=== PATIENT | female | born 1950 | race Caucasian/White ===

== ENCOUNTER 2019-02-23 14:59 | Outpatient (RCR) | payer MEDICARE, MEDICAID, SELFPAY ==
[2019-02-23 15:36] LABS: INR 2.08 (0.8-1.2)
== END 2019-03-13 23:59 | disposition home or self-care (01) ==
LOC: LAB 14:59
PROVIDERS: Family Provider Family Medicine; PCP Family Medicine; Visit Provider Nurse Practitioner Family
DX: C54.1 Malignant neoplasm of endometrium (principal); E66.01 Morbid (severe) obesity due to excess calories; Z79.01 Long term (current) use of anticoagulants; Z86.718 Personal history of other venous thrombosis and embolism
CPT/HCPCS: 85610

== ENCOUNTER 2019-04-11 06:00 | Outpatient (CLI) | payer MEDICARE, MEDICAID, SELFPAY | END 2019-04-11 06:01 | disposition home or self-care (01) | LOC: ONCMED 04-21 13:54 | PROVIDERS: Family Provider Family Medicine; PCP Family Medicine; Visit Provider Internal Medicine Medical Oncology | DX: C56.9 Malignant neoplasm of unspecified ovary (principal); C78.6 Secondary malignant neoplasm of retroperitoneum and peritoneum; I89.0 Lymphedema, not elsewhere classified; I87.8 Other specified disorders of veins; M81.0 Age-related osteoporosis without current pathological fracture; G89.29 Other chronic pain; E03.9 Hypothyroidism, unspecified; M54.9 Dorsalgia, unspecified; Z79.899 Other long term (current) drug therapy; Z90.722 Acquired absence of ovaries, bilateral; Z90.710 Acquired absence of both cervix and uterus; Z95.828 Presence of other vascular implants and grafts; Z86.718 Personal history of other venous thrombosis and embolism; Z79.01 Long term (current) use of anticoagulants ==

== ENCOUNTER 2019-04-20 03:05 | Outpatient (CLI) | payer MEDICARE, MEDICAID, SELFPAY ==
--- NOTE | 2019-04-14 17:11 | ONC CON_ITS ---
Dr. Porras New Patient Note Patient: Lorrie Mulligan Unit #: [id number]: [id number] Dicatated By: Yanick Porras M.D.Date of Visit: Apr 11, 2019 Onc MED New Patient/Consult Referring Physician: Dr. Bebeto Porter M.D. Chief Complaint: Endometrial cancer. 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 This patient has a remote history of lower extremity deep vein thrombosis and pulmonary embolism. She has been on chronic anticoagulation. She had subsequently developed chronic lymphedema and chronic venous stasis. She had recurrent episodes of cellulitis, for which she ultimately required placement of Port-A-Cath venous access device in 2013. She had previously been on disability due to back pain. At some point during this time her condition declined to the point that she required penitentiary placement, and she ultimately became nonambulatory. In September 2018 she had presented with postmenopausal bleeding. Her pelvic ultrasound showed thickened endometrium. She was referred to Dr. Barry and she underwent hysteroscopy with D&C on 11/19/2018. Survey of the uterine cavity showed irregular thickened endometrium involving the fundus in both the right and left lateral zavala. Pathology on the endometrial curettings showed grade 2/4 endometrial adenocarcinoma. She was then referred to Dr. Porter and on 01/22/2019 she underwent robotic-assisted total laparoscopic hysterectomy, bilateral salpingo-oophorectomy, and omentectomy. Bilateral pelvic sentinel lymph node biopsy had been planned but was abandoned, as she had gross evidence of omental and peritoneal metastatic disease and it had become clear at that point that the procedure was going to be just palliative. Pathology showed a mixture of 90% clear cell carcinoma and 10% endometrioid adenocarcinoma. The tumor measured 6 x 6 cm. Myometrial invasion was measured at 75%. The ectocervical and parametrial margins were uninvolved. The omentum showed multifocal clear-cell carcinoma. Pathologic staging was pT2, pNx, pM1. She had an uneventful recovery in the penitentiary. She is seen in the penitentiary for further management of the endometrial cancer. She says she feels pretty good, though as previously noted she is nonambulatory. She has good appetite. She does not have fever, night sweats, or hot flashes. She does not complain of shortness of breath, cough, or chest pain. She reports having some pain with defecation. She has no other GI or complaints. Her records indicate that she has had chronic back pain, but she currently reports no joint or bone pain, and she has no focal neurologic symptoms. She has nulliparous. She had natural menopause, but she does not recall at what age. She had no hormone replacement therapy. Past Medical History: Ms. Mulligan's medical history consists of chronic back pain, chronic lymphedema of the lower extremities, chronic venous stasis with recurrent cellulitis, hypothyroidism, osteoporosis, and history of lower extremity DVT and pulmonary emboli in 2007. Past Surgical History: She underwent hysteroscopy with D&C on 11/19/2018 and she underwent robotic assisted total laparoscopic hysterectomy, bilateral salpingo-oophorectomy, and omentectomy on 01/22/2019. She had undergone placement of Port-A-Cath venous access device in 2013. Her other surgical/procedural history includes hemorrhoidectomy and right breast lumpectomy for benign disease x 2. Medications: Acetaminophen 1 (325 mg) Tablet Oral q 4 hours PRN, Bisacodyl 1 (10 mg) Suppository Rectal daily PRN, Citalopram Hydrobromide 1 (10 mg) Tablet Oral daily, Coumadin 1 (4 mg) Tablet Oral at bedtime, Enema 1 (7-19 g/118mL) Enema Rectal daily PRN, HYDROcodone-Acetaminophen 1 - 2 (5-325 mg) Tablet Oral q 4 hours PRN, Levothyroxine Sodium 1 (100 mcg) Tablet Oral daily, Nystatin 1 Dose(s) (of 438794 Units/g) Ointment Topical b.i.d. Allergies: Furosemide, Penicillins, Sulfa Antibiotics, and Tamiflu. Social History: Ms. Mulligan is single. She is a non-smoker. She has had only rare alcohol use. Family History: Her father with complications of bleeding ulcer. Her mother with heart attack and stroke. A brother has had surgery for valvular heart disease. Review Of Symptoms: Constitutional - She says her energy is pretty good, but she has limited activity. She is nonambulatory. Appetite is good and weight is stable. No fever, chills, hot flashes, or night sweats. ECOG score is 3, Eyes - No change in vision, ENMT - She has hearing loss. No tinnitus. No sinus congestion/drainage. No mouth sores. No sore throat or difficulty swallowing, Hematologic/Lymphatic - She has some bruising. No other bleeding, Respiratory - No shortness of breath. No cough. No pleuritic pain or hemoptysis, Cardiovascular - No angina pain. No palpitations, Gastrointestinal - No nausea or vomiting. No heartburn or acid reflux. No diarrhea or constipation. She reports having pain with defecation. No blood in the stool or black stools, Genitourinary (F) - No dysuria or hematuria. No urinary frequency. No urgency or incontinence, Musculoskeletal - Currently no joint or bone pain, but she has had chronic back pain, Integumentary - She has chronic lymphedema and chronic venous stasis. She has had recurrent episodes of cellulitis, Neurologic - No headache or dizziness. No numbness/paresthesias or other focal neurologic symptoms, Psychiatric - No anxiety or depression. She has chronic insomnia. Vital Signs: Performed on Apr 10, 2019 12:04: 0.00 (LOW), sq.m, 98 %, 70 /min, 18 /min, 106/62 mm(hg), and 320.4 lbs (HIGH). Physical Examination: Constitutional - She appears somewhat weak generally, but not acutely ill, Eyes - Sclerae nonicteric. Conjunctivae clear, ENMT - No lesions noted in the oral cavity, Hematologic/Lymphatic - No cervical, clavicular, or axillary adenopathy, Respiratory - Lungs are clear with good air movement bilaterally, Cardiovascular - Heart rythm is regular. There is a II/ systolic murmur. There is no gallop or rub noted, Abdomen - Distended but soft. Liver and spleen do not appear enlarged. There is no abdominal mass or ascites noted and there is no inguinal adenopathy, Extremities - There is chronic lower extremity edema. There are severe venous stasis changes in both lower legs. Dorsalis pedis pulses are palpable bilaterally, Integumentary - There are widely scattered excoriations. There is a venous stasis ulceration on the left lower anterior tibial area. There are no suspicious skin lesions noted, Neurologic - No focal neurologic deficits noted. Impression: 1. 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 2. She underwent palliative hysterectomy/bilateral salpingo-oophorectomy and omentectomy on 01/22/2019. 3. She has become debilitated due to chronic lymphedema of the lower extremities and chronic lower extremity venous stasis. 4. She has had recurrent episodes of cellulitis requiring placement of Port-A-Cath venous access device. Her other medical illnesses include: 5. History of lower extremity deep vein thrombosis and pulmonary emboli, for which she is on chronic anticoagulation. 6. She has a history of chronic back pain, for which she had been on disability. 7. Osteoporosis. 8. Hypothyroidism. Plan: I reviewed the pathology results from the initial D&C, and I reviewed the findings at surgery. We discussed the clinical implications. She has metastatic disease and while there may be some potential to help control this with chemotherapy, this disease will not be amenable to radiation or to any further surgery, and there is no potential for chemotherapy to cure it. The typical regimen would be a carboplatin/paclitaxel combination, and I reviewed expected side effects which may include nausea/vomiting, alopecia, fatigue, low blood counts, and neuropathy, among others. She indicates that she has willing to proceed with treatment, and I will make arrangements for this to be done as an outpatient sometime within the next 1 to 2 weeks. All of her questions were addressed. Signed By: Yanick Porras M.D. <<Signature on File>>
[2019-04-20 08:59] LABS: Basophils % 0.4 %; Eosinophils # 0.3 10^3/uL (0.0-0.8); Eosinophils % 3.5 %; Hemoglobin 10.1 g/dL (11.5-15.3); Lymphocytes # 2.9 10^3/uL (0.8-4.8); Lymphocytes % 31.7 %; Mean Corpuscular HGB Conc 28.1 g/dL (30.0-36.0); Mean Corpuscular Volume 78.3 fL (81-99); Mean Platelet Volume 10.6 fL (7.4-10.4); Monocytes # 0.8 10^3/uL (0.2-0.9); Monocytes % 8.8 %; Neutrophils % 55.3 %; Nucleated Red Blood Cells % 0 %; Platelet Count 308 10^3/cmm (130-400); Red Cell Distribution Width 17.7 % (12.1-15.1)
[2019-04-20 09:16] LABS: Alanine Aminotransferase 20 U/L (0-33); Albumin Level 3.2 g/dL (3.5-5.2); Alkaline Phosphatase 119 IU/L (35-105); Anion Gap 15.2 (5-19); Aspartate Amino Transferase 43 U/L (0-32); Blood Urea Nitrogen 17 mg/dL (8-23); Calcium 9.4 mg/dL (8.5-10.5); Carbon Dioxide 25 mmol/L (22-29); Chloride 104 mmol/L (98-107); Glucose 67 mg/dL (65-115); Osmolality Calculated 285 mOsm/kg (285-295); Potassium 4.2 mmol/L (3.5-5.1); Sodium 140 mmol/L (136-145); Total Bilirubin 0.3 mg/dL (0.15-1.2); Total Protein 8.2 g/dL (6.6-8.7)
== END 2019-04-20 03:06 | disposition home or self-care (01) ==
LOC: ONCMED 18:40
PROVIDERS: Family Provider Family Medicine; PCP Family Medicine; Visit Provider Internal Medicine Medical Oncology
DX: C54.1 Malignant neoplasm of endometrium (principal)
CPT/HCPCS: 80053; 85025

== ENCOUNTER 2019-04-21 07:44 | Outpatient (CLI) | payer MEDICARE, MEDICAID, SELFPAY ==
[2019-04-21] MEDS: sodium chloride 0.9% 250 ML 75 ML IV ×2 (09:10)
[2019-04-21 09:15] LABS: Ferritin 11 ng/mL (15-150); Iron 31 ug/dL (37-145); Percent Saturation 8.8 % (20-50); Total Iron Binding Capacity 350 mcg/dl; Unsaturated Iron Binding 319 ug/dL (112-347)
== END 2019-04-21 07:45 | disposition home or self-care (01) ==
LOC: ONCMED 07:50
PROVIDERS: Family Provider Family Medicine; PCP Family Medicine; Visit Provider Internal Medicine Medical Oncology
DX: Z51.11 Encounter for antineoplastic chemotherapy (principal); C54.1 Malignant neoplasm of endometrium
CPT/HCPCS: 82728; 83540; 83550; 96367; 96413; 96415; 96417; J1100; J1200; J1453; J2469; J3490; J7030; J7040; J7050; J9045; J9267

== ENCOUNTER 2019-05-12 06:37 | Outpatient (RCR) | payer MEDICARE, MEDICAID, SELFPAY ==
[2019-04-28 15:06] LABS: Basophils % 0.3 %; Eosinophils # 0.1 10^3/uL (0.0-0.8); Eosinophils % 2.4 %; Hematocrit 31.7 % (37.0-47.0); Hemoglobin 9.2 g/dL (11.5-15.3); Lymphocytes # 1.6 10^3/uL (0.8-4.8); Lymphocytes % 54.6 %; Mean Corpuscular Hemoglobin 21.7 pg (28.0-34.0); Mean Corpuscular Volume 74.9 fL (81-99); Mean Platelet Volume 11.5 fL (7.4-10.4); Monocytes # 0.1 10^3/uL (0.2-0.9); Monocytes % 2.4 %; Neutrophils # 1.1 10^3/uL (1.8-7.7); Neutrophils % 38.9 %; Nucleated Red Blood Cells % 0 %; Platelet Count 206 10^3/cmm (130-400); Red Blood Count 4.23 10^6/uL (4.1-5.3); Red Cell Distribution Width 17.2 % (12.1-15.1); White Blood Count 2.9 10^3/uL (4.0-10.0)
[2019-04-30 06:52] LABS: Eosinophils % 1.3 %; Hematocrit 31.3 % (37.0-47.0); Lymphocytes # 1.1 10^3/uL (0.8-4.8); Lymphocytes % 71.6 %; Mean Corpuscular HGB Conc 28.8 g/dL (30.0-36.0); Mean Corpuscular Hemoglobin 22.1 pg (28.0-34.0); Mean Corpuscular Volume 76.9 fL (81-99); Mean Platelet Volume 9.6 fL (7.4-10.4); Monocytes # 0.2 10^3/uL (0.2-0.9); Monocytes % 13.5 %; Nucleated Red Blood Cells % 0 %; Platelet Count 120 10^3/cmm (130-400); Red Blood Count 4.07 10^6/uL (4.1-5.3); Red Cell Distribution Width 16.8 % (12.1-15.1); White Blood Count 1.6 10^3/uL (4.0-10.0)
[2019-04-30 07:15] LABS: Slide Review Slide Review Perform
[2019-04-30 08:06] LABS: INR 1.68 (0.8-1.2)
[2019-04-30 08:48] LABS: Neutrophils # 0.2 10^3/uL (1.8-7.7)
[2019-05-04 06:17] LABS: Basophils # 0.1 10^3/uL (0.0-0.1); Basophils % 0.7 %; Eosinophils # 0.2 10^3/uL (0.0-0.8); Eosinophils % 1.2 %; Hematocrit 31.7 % (37.0-47.0); Hemoglobin 9.3 g/dL (11.5-15.3); Lymphocytes # 2.2 10^3/uL (0.8-4.8); Lymphocytes % 13.4 %; Mean Corpuscular HGB Conc 29.3 g/dL (30.0-36.0); Mean Corpuscular Hemoglobin 22.2 pg (28.0-34.0); Mean Corpuscular Volume 75.8 fL (81-99); Monocytes # 2.1 10^3/uL (0.2-0.9); Neutrophils # 9.5 10^3/uL (1.8-7.7); Neutrophils % 58.8 %; Nucleated Red Blood Cells # 0.1 /100WBC; Nucleated Red Blood Cells % 0.3 %; Platelet Count 45 10^3/cmm (130-400); Red Blood Count 4.18 10^6/uL (4.1-5.3); Red Cell Distribution Width 16.8 % (12.1-15.1); White Blood Count 16.2 10^3/uL (4.0-10.0)
[2019-05-04 07:28] LABS: Slide Review Slide Review Perform
[2019-05-04 07:31] LABS: Absolute Segmented Neutrophil 4.3 10/cmm (1.6-7.1); Lymphocytes 18 %; Segmented Neutrophils 27 %; Total Cells Counted 100 (0-100)
[2019-05-04 07:33] LABS: Anisocytosis 1+; Hypochromasia 1+; Microcytosis 1+; Platelet Estimate Decreased (Normal)
[2019-05-11 11:57] LABS: Basophils % 0.2 %; Eosinophils % 0.2 %; Hematocrit 30.6 % (37.0-47.0); Hemoglobin 8.8 g/dL (11.5-15.3); Lymphocytes # 2.3 10^3/uL (0.8-4.8); Lymphocytes % 40.7 %; Mean Corpuscular HGB Conc 28.8 g/dL (30.0-36.0); Mean Corpuscular Hemoglobin 22.6 pg (28.0-34.0); Mean Corpuscular Volume 78.5 fL (81-99); Mean Platelet Volume 10.3 fL (7.4-10.4); Monocytes # 0.7 10^3/uL (0.2-0.9); Monocytes % 12.1 %; Neutrophils # 2.3 10^3/uL (1.8-7.7); Neutrophils % 42.1 %; Nucleated Red Blood Cells % 0.4 %; Platelet Count 201 10^3/cmm (130-400); Red Cell Distribution Width 17.9 % (12.1-15.1); White Blood Count 5.6 10^3/uL (4.0-10.0)
[2019-05-11 12:47] LABS: Alanine Aminotransferase 14 U/L (0-33); Albumin Level 3.4 g/dL (3.5-5.2); Alkaline Phosphatase 126 IU/L (35-105); Anion Gap 16.1 (5-19); Aspartate Amino Transferase 31 U/L (0-32); Blood Urea Nitrogen 11 mg/dL (8-23); Calcium 8.9 mg/dL (8.5-10.5); Carbon Dioxide 31 mmol/L (22-29); Chloride 100 mmol/L (98-107); Globulin 3.8 g/dL (1.3-4.6); Glucose 73 mg/dL (65-115); Osmolality Calculated 293 mOsm/kg (285-295); Potassium 3.1 mmol/L (3.5-5.1); Sodium 144 mmol/L (136-145); Total Bilirubin 0.2 mg/dL (0.15-1.2); Total Protein 7.2 g/dL (6.6-8.7)
[2019-05-12] MEDS: sodium chloride 0.9% 250 ML 75 ML IV (09:52)
[2019-05-12] MEDS: pegfilgrastim 6 mg/0.6 mL Kit (onpro) SUBCUT (15:50)
--- NOTE | 2019-05-12 17:11 | ONC FU_ITS ---
Dr. Porras Patient Follow-Up Note Patient: Lorrie Mulligan Unit #: [id number]: 1950 Dicatated By: Yanick Porras M.D.Date of Visit:May 12, 2019 Onc Med Follow-up/Prog Note Chief Complaint: Endometrial cancer. 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 This patient has a remote history of lower extremity deep vein thrombosis and pulmonary embolism. She has been on chronic anticoagulation. She had subsequently developed chronic lymphedema and chronic venous stasis. She had recurrent episodes of cellulitis, for which she ultimately required placement of Port-A-Cath venous access device in 2013. She had previously been on disability due to back pain. At some point during this time her condition declined to the point that she required jail placement, and she ultimately became nonambulatory. In September 2018 she had presented with postmenopausal bleeding. Her pelvic ultrasound showed thickened endometrium. She was referred to Dr. Barry and she underwent hysteroscopy with D&C on 11/19/2018. Survey of the uterine cavity showed irregular thickened endometrium involving the fundus in both the right and left lateral zavala. Pathology on the endometrial curettings showed grade 2/4 endometrial adenocarcinoma. She was then referred to Dr. Porter and on 01/22/2019 she underwent robotic-assisted total laparoscopic hysterectomy, bilateral salpingo-oophorectomy, and omentectomy. Bilateral pelvic sentinel lymph node biopsy had been planned but was abandoned, as she had gross evidence of omental and peritoneal metastatic disease and it had become clear at that point that the procedure was going to be just palliative. Pathology showed a mixture of 90% clear cell carcinoma and 10% endometrioid adenocarcinoma. The tumor measured 6 x 6 cm. Myometrial invasion was measured at 75%. The ectocervical and parametrial margins were uninvolved. The omentum showed multifocal clear-cell carcinoma. Pathologic staging was pT2, pNx, pM1. She had an uneventful recovery in the jail. I had seen her initially on 04/11/2019. At that time she agreed to a trial of chemotherapy with carboplatin/paclitaxel. Her medical history includes chronic lower extremity lymphedema and recurrent cellulitis, lower extremity deep vein thrombosis and pulmonary emboli, chronic back pain, osteoporosis, and hypothyroidism. She is a nonsmoker. INTERIM HISTORY: She began cycle 1 of carboplatin/paclitaxel on 04/21/2019. She experienced no acute toxicity with the treatment. At day 9 she was severely neutropenic, ANC 200. She was not febrile. She recovered uneventfully with Neupogen. She is seen for a scheduled visit. She has been feeling good. She says her energy is okay, though she is almost completely bedridden due to the lower extremity problems. Her ECOG score is 3. She had no nausea/vomiting with her initial chemotherapy treatment. Her appetite has been good. She has no fever or night sweats. She has had no mouth sores. She does not complain of shortness of breath, cough, or chest pain. She has no other GI or complaints. Her records indicate that she has had chronic back pain, but she currently reports no joint or bone pain. She does not complain of headache or dizziness. She has no numbness/paresthesia or other focal neurologic symptoms. Medications: Acetaminophen 1 (325 mg) Tablet Oral q 4 hours PRN, Ativan 0.5 - 1 Tablet (of 1 mg) Oral t.i.d. PRN, Bactroban 1 (2 %) Cream Topical PRN, Benadryl Allergy 2 Tablet (of 25 mg) Oral PRN, Bisacodyl 1 (10 mg) Suppository Rectal daily PRN, Citalopram Hydrobromide 1 (10 mg) Tablet Oral daily, Coumadin 1 (5 mg) Tablet Oral at bedtime, Dexamethasone (4 mg) Tablet Oral Take as Directed, Enema 1 (7-19 g/118mL) Enema Rectal daily PRN, Ferrous Sulfate 1 Tablet (of 325 (65 fe) mg) Oral daily, HYDROcodone-Acetaminophen 1 - 2 (5-325 mg) Tablet Oral q 4 hours PRN, Levothyroxine Sodium 1 (100 mcg) Tablet Oral daily, Nystatin 1 Dose(s) (of 344658 Units/g) Ointment Topical b.i.d., Prochlorperazine Maleate 1 Tablet (of 10 mg) Oral q 4 hours PRN Allergies: Furosemide, Penicillins, Sulfa Antibiotics, and Tamiflu. Review of Systems: Constitutional - She says her energy is okay, but she has very limited activity, as she is almost completely bedridden. Appetite is good and weight is stable. No fever, chills, hot flashes, or night sweats. ECOG score is 3, ENMT - No sinus congestion/drainage. No mouth sores. No sore throat or difficulty swallowing, Hematologic/Lymphatic - She has some bruising, Respiratory - No shortness of breath. No cough. No pleuritic pain or hemoptysis, Cardiovascular - No angina pain. No palpitations, Gastrointestinal - No nausea or vomiting. No heartburn or acid reflux. No diarrhea or constipation. No blood in the stool or black stools, Genitourinary (F) - No dysuria or hematuria. No urinary frequency. No urgency or incontinence, Musculoskeletal - She reports no joint or bone pain, Neurologic - No headache or dizziness. No numbness/paresthesias or other focal neurologic symptoms, Psychiatric - No anxiety or depression. She has chronic insomnia. Vital Signs: Performed on May 12, 2019 09:11 Height - 71.00 in Weight - 320.4 lbs BSA - 2.58 sq.m BMI - 44.69 (HIGH) Temperature - 97.6 F (LOW) Pulse - 75 /min Respiration - 26 /min BP - 144/80 mm(hg) (HIGH) O2 Sat - 94 % (LOW) Pain - 10 Physical Examination: Constitutional - She appears somewhat weak generally, Eyes - Sclerae nonicteric. Conjunctivae clear, ENMT - No lesions noted in the oral cavity, Hematologic/Lymphatic - No cervical, clavicular, or axillary adenopathy, Respiratory - Lungs are clear with good air movement bilaterally, Cardiovascular - Heart rythm is regular. There is a II/ systolic murmur. There is no gallop or rub noted, Abdomen - Moderately distended but soft. Liver and spleen do not appear enlarged. There is no abdominal mass or ascites noted and there is no inguinal adenopathy, Extremities - Chronic lower extremity edema and severe venous stasis changes in both lower legs. Dorsalis pedis pulses are palpable bilaterally, Integumentary - There is a venous stasis ulceration on the left lower anterior tibial area. There are a couple of superficial abrasions on the dorsum of the right big toe, Neurologic - No focal neurologic deficits noted. Lab/Imaging: Test performed on May 11, 2019 03:20 Sodium 144 mmol/L Potassium 3.1 mmol/L Chloride 100 mmol/L CO2 31 mmol/L Anion Gap 16.1 BUN 11 mg/dL Creatinine 0.7 mg/dL Cr Clearance (Est) 169.1200 mL/min Glucose 73 mg/dL Calcium 8.9 mg/dL Protein, Total 7.2 g/dL Albumin 3.4 g/dL Globulin 3.8 g/dL Bilirubin, Total 0.2 mg/dL ALT (SGPT) 14 U/L AST (SGOT) 31 U/L Alkaline Phosphatase 126 IU/L WBC 5.6 10 3/uL RBC 3.90 10 6/uL HGB 8.8 g/dL HCT 30.6 % MCV 78.5 fL MCH 22.6 pg MCHC 28.8 g/dL RDW 17.9 % Platelet Count 201 10 3/cmm MPV 10.3 fL Neutrophils 2.3 10 3/uL Lymphocytes 2.3 10 3/uL Monocytes 0.7 10 3/uL Eosinophils 0.0 10 3/uL Basophils 0.0 10 3/uL Neutrophil % 42.1 % Lymphocyte % 40.7 % Monocyte % 12.1 % Eosinophil % 0.2 % Basophils % 0.2 % Impression: 1. 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 2. She underwent palliative hysterectomy/bilateral salpingo-oophorectomy and omentectomy on 01/22/2019. 3. She has become debilitated due to chronic lymphedema of the lower extremities and chronic lower extremity venous stasis. 4. She has had recurrent episodes of cellulitis requiring placement of Port-A-Cath venous access device. 5. She has a hypochromic, microcytic anemia with transferrin saturation consistent with iron deficiency. Her other medical illnesses include: 6. History of lower extremity deep vein thrombosis and pulmonary emboli, for which she is on chronic anticoagulation. 7. She has a history of chronic back pain, for which she had been on disability. 8. Osteoporosis. 9. Hypothyroidism. She has been undergoing a trial of chemotherapy with carboplatin/paclitaxel, cycle 1 beginning on 04/21/2019. With the first cycle she was severely neutropenic at day 9, but she recovered uneventfully with Neupogen. She otherwise tolerated the treatment very well. She remains moderately anemic despite oral iron supplementation. Plan: She will proceed with cycle 2 of carboplatin/paclitaxel. Dosages will remain the same. She will be given Neulasta prophylactically with this cycle. She also will begin parenteral iron replacement with Injectafer, subject to verification of insurance approval. Blood counts will be monitored weekly. She will be scheduled for a follow-up visit in 3 weeks. Signed By: Yanick Porras M.D. <<Signature on File>>
== END 2019-05-12 23:59 | disposition home or self-care (01) ==
LOC: ONCMED 06:37
PROVIDERS: Family Provider Family Medicine; PCP Family Medicine; Visit Provider Internal Medicine Medical Oncology
DX: Z51.11 Encounter for antineoplastic chemotherapy (principal); C54.1 Malignant neoplasm of endometrium; C78.6 Secondary malignant neoplasm of retroperitoneum and peritoneum; D70.1 Agranulocytosis secondary to cancer chemotherapy; T45.1X5A Adverse effect of antineoplastic and immunosuppressive drugs, initial encounter; D50.9 Iron deficiency anemia, unspecified; I89.0 Lymphedema, not elsewhere classified; G89.29 Other chronic pain; M54.9 Dorsalgia, unspecified; M81.0 Age-related osteoporosis without current pathological fracture; E03.9 Hypothyroidism, unspecified; F51.04 Psychophysiologic insomnia; I87.8 Other specified disorders of veins; Z79.899 Other long term (current) drug therapy; Z79.891 Long term (current) use of opiate analgesic; Z79.01 Long term (current) use of anticoagulants; Z86.718 Personal history of other venous thrombosis and embolism; Z86.711 Personal history of pulmonary embolism
CPT/HCPCS: 36415; 80053; 85007; 85025; 85610; 96367; 96372; 96413; 96415; 96417; 99214; J1100; J1200; J1439; J1442; J1453; J2469; J2505; J3490; J7030; J7040; J7050; J9045; J9267

== ENCOUNTER 2019-05-14 08:44 | Emergency (ER) | payer MEDICARE, MEDICAID, SELFPAY ==
[2019-05-14 08:46] VITALS: BP 147/50; PULSE 89; RESP 20; TEMP 37.1; O2SAT 88; BMI 43.0
--- NOTE | 2019-05-14 09:04 | ED_ITS ---
HPI - Epistaxis General: Chief complaint: Epistaxis Stated complaint: NOSEBLEED Time Seen by Provider: 05/14/19 08:46 History of Present Illness: HPI Narrative: Patient arrives via correction via ambulance for epistaxis x2 days. Some packing is been utilized without success bleeding of the right naris. complaint: epistaxis Location: right nostril Onset (ago): day(s) (2) Duration: intermittent Context: history of previous and other anticoagulant use Associated symptoms: Reports no associated symptoms; Deny fever(s), headache(s) or vomiting Treatment prior to arrival: head tilted back and stuffed nose with tissue Review of Systems Const: Denies: fever, chills or body aches Eyes: Denies: change in vision or blurry vision ENMT: Reports: nose bleeds (Recently had chemotherapy 2 days ago history of nosebleeds after chemotherapy patient arrived via ambulance with gauze at the end of the nose nothing inside the nose.); Denies: throat pain or nasal congestion Card: Denies: chest pain or shortness of breath on exertion Resp: Denies: shortness of breath, productive cough or non-productive cough GI: Denies: abdominal pain, nausea or vomiting Musc: Denies: extremity pain Skin/Breast: Denies: rash Neuro: Denies: headache Psych: Denies: anxiety or depression González/Lymph: Reports: other (lymphedema LE's, some sores tp feet/legs- none with erythema); Denies: easy bruising PFSH ED PFSH: Social History Smoking and tobacco status: never smoked Physical Exam Const: COMMON NORMALS: no apparent distress, average body habitus and oriented x3 HENMT: COMMON NORMALS: normocephalic HEAD & SCALP: normal to inspection and normocephalic FACE & SINUS: normal facial exam NOSE: epistaxis (Large clot came out of the nose right side and the large clot was removed this throat.) on the right and other Eye: COMMON NORMALS: conjunctivae normal GENERAL EYE: normal appearance of both eyes CONJUNCTIVA: Yes conjunctivae normal Neck/C-Spine: COMMON NORMALS: no JVD Chest: COMMONS NORMALS: inspection of chest normal Resp: COMMON NORMALS: normal respiratory effort and clear to auscultation bilaterally AUSCULTATION: clear to auscultation bilaterally PERCUSSION: other (Patient does not have any shortness of breath.) Cardio: COMMON NORMALS: no JVD, regular rate and regular rhythm RATE: regular rate RHYTHM: regular rhythm GI: COMMON NORMALS: normal to inspection, nondistended, normoactive bowel sounds Extremity: COMMON NORMALS: normal to inspection and full ROM Neuro: COMMON NORMALS: oriented x3 Procedures Epistaxis Control Time Out Performed: No Nostril: right Direct Inspection: unable to visualize Clots Removed by: manually Cautery Used: none Device Inserted: hemostatic balloon Device Size: 750 Complications: pain Course Vital Signs: Vital signs: Vital Signs Temperature 98.7 F 05/14/19 08:46 Pulse Rate 89 05/14/19 08:46 Respiratory Rate 20 H 05/14/19 08:46 Blood Pressure 147/50 05/14/19 08:46 Pulse Oximetry 88 L 05/14/19 08:46 MDM - Epistaxis MDM Narrative: Medical decision making narrative: bleeding had stopped with 5 cc- nasal baloon in . Pt tolerated fairly well Discharge Plan Discharge Patient Disposition: [facility] Clinical Impression: Epistaxis Condition: Stable Discharge Orders: Discharge Order (Routine); Ordered 05/14/19 Ordered By: Josue Seo Referrals: Maria G Mccarthy MD [Primary Care Provider] - Discharge Diet: Usual diet Discharge Activity: Resume usual activity Patient Instructions: Epistaxis (ED) Activity Restrictions/Additional Instructions: Maintain nasal balloon x2 days. To remove nasal balloon removed 5 cc of nasal saline from the device. Patient might need pain control or sedative to help with discomfort from nasal balloon. If bleeding continues patient may need to follow-up with ENT for cauterization which she has had in the past. Coding Level of Care Code ED Miter Cutter for Khadijah Fwd Exam Comprehensive
[2019-05-14] MEDS: LORazepam 2 mg/mL INJ 1 mL 1 MG IM (09:13)
--- NOTE | 2019-05-14 09:22 | PC.NURSE ---
rhino rocket placed into right nostril, patient tolerated well
[2019-05-14 13:13] VITALS: PULSE 84; RESP 18; O2SAT 90
== END 2019-05-14 13:17 ==
LOC: ER 09:42
PROVIDERS: Emergency Provider Nurse Practitioner Family; Family Provider Family Medicine; PCP Family Medicine
DX: R04.0 Epistaxis (principal)
CPT/HCPCS: 12345; 30901; 96372; 99281; 99283; J2060

== ENCOUNTER 2019-05-20 08:36 | Outpatient (RCR) | payer MEDICARE, MEDICAID, SELFPAY ==
[2019-05-19 12:44] LABS: Basophils % 1.6 %; Eosinophils % 2.3 %; Hematocrit 21.8 % (37.0-47.0); Lymphocytes # 0.9 10^3/uL (0.8-4.8); Lymphocytes % 70.5 %; Mean Corpuscular HGB Conc 29.8 g/dL (30.0-36.0); Mean Corpuscular Hemoglobin 23.2 pg (28.0-34.0); Mean Corpuscular Volume 77.9 fL (81-99); Mean Platelet Volume 10.6 fL (7.4-10.4); Monocytes # 0.1 10^3/uL (0.2-0.9); Nucleated Red Blood Cells % 0 %; Platelet Count 129 10^3/cmm (130-400); Red Cell Distribution Width 19.6 % (12.1-15.1); White Blood Count 1.3 10^3/uL (4.0-10.0)
[2019-05-19 13:42] LABS: Hemoglobin 6.5 g/dL (11.5-15.3); Neutrophils # 0.2 10^3/uL (1.8-7.7)
[2019-05-19 13:43] LABS: Slide Review Slide Review Perform
[2019-05-19 17:00] LABS: Eosinophils % 2.5 %; Hematocrit 24.3 % (37.0-47.0); Hemoglobin 7.2 g/dL (11.5-15.3); Lymphocytes # 0.6 10^3/uL (0.8-4.8); Lymphocytes % 72.8 %; Mean Corpuscular HGB Conc 29.6 g/dL (30.0-36.0); Mean Corpuscular Volume 77.6 fL (81-99); Mean Platelet Volume 10.6 fL (7.4-10.4); Monocytes # 0.1 10^3/uL (0.2-0.9); Monocytes % 9.9 %; Neutrophils % 14.8 %; Nucleated Red Blood Cells % 0 %; Platelet Count 137 10^3/cmm (130-400); Red Blood Count 3.13 10^6/uL (4.1-5.3); Red Cell Distribution Width 19.9 % (12.1-15.1)
[2019-05-19 17:32] LABS: Neutrophils # 0.1 10^3/uL (1.8-7.7); White Blood Count 0.8 10^3/uL (4.0-10.0)
[2019-05-19 18:27] LABS: Slide Review Slide Review Perform
[2019-05-20] VITALS (9 sets, daily range): BP systolic 111–157; BP diastolic 64–83; PULSE 80–96; RESP 16–19; TEMP 36.1–36.6; O2SAT 97
== END 2019-05-20 23:59 | disposition home or self-care (01) ==
LOC: ONCMED 08:36
PROVIDERS: Family Provider Family Medicine; PCP Family Medicine; Visit Provider Internal Medicine Medical Oncology
DX: D50.9 Iron deficiency anemia, unspecified (principal)
CPT/HCPCS: 36415; 36430; 85025; 86850; 86900; 86920; P9040

== ENCOUNTER 2019-05-24 16:56 | Emergency (ER) | payer MEDICARE, MEDICAID, SELFPAY ==
[2019-05-24] VITALS (7 sets, daily range): BP systolic 96–163; BP diastolic 43–67; PULSE 72–85; RESP 14–20; TEMP 36.7–37.1; O2SAT 93–98; BMI 41.8
[2019-05-24 18:13] LABS: Basophils % 0.7 %; Eosinophils % 0.7 %; Hematocrit 28.7 % (37.0-47.0); Hemoglobin 8.6 g/dL (11.5-15.3); Lymphocytes # 1.5 10^3/uL (0.8-4.8); Mean Corpuscular Hemoglobin 23.6 pg (28.0-34.0); Mean Corpuscular Volume 78.6 fL (81-99); Monocytes # 0.6 10^3/uL (0.2-0.9); Monocytes % 14.9 %; Neutrophils % 46.8 %; Nucleated Red Blood Cells % 0 %; Red Blood Count 3.65 10^6/uL (4.1-5.3); White Blood Count 4.2 10^3/uL (4.0-10.0)
[2019-05-24 18:33] LABS: Alanine Aminotransferase 20 U/L (0-33); Albumin Level 3.5 g/dL (3.5-5.2); Alkaline Phosphatase 164 IU/L (35-105); Anion Gap 14.7 (5-19); Aspartate Amino Transferase 35 U/L (0-32); Blood Urea Nitrogen 18 mg/dL (8-23); Carbon Dioxide 29 mmol/L (22-29); Chloride 98 mmol/L (98-107); Globulin 3.1 g/dL (1.3-4.6); Glucose 116 mg/dL (65-115); Osmolality Calculated 285 mOsm/kg (285-295); Sodium 139 mmol/L (136-145); Total Bilirubin 0.4 mg/dL (0.15-1.2); Total Protein 6.6 g/dL (6.6-8.7)
[2019-05-24] MEDS: HYDROcodone-acetaminophen 10-325 mg Tablet 1 TAB PO (18:44)
[2019-05-24 18:45] LABS: Potassium 2.7 mmol/L (3.5-5.1)
[2019-05-24 18:46] LABS: Slide Review Slide Review Perform
[2019-05-24 18:47] LABS: Platelet Count 23 10^3/cmm (130-400)
[2019-05-24 18:50] LABS: INR 1.62 (0.8-1.2)
[2019-05-24] MEDS: potassium chloride oral liq 20 mEq/15 mL UDC 40 MEQ PO (20:41)
--- NOTE | 2019-05-24 22:46 | ED_ITS ---
HPI - Epistaxis General: Chief complaint: Epistaxis Stated complaint: NOSE BLEED Time Seen by Provider: 05/24/19 17:12 Source: patient and EMS Mode of arrival: EMS Limitations: no limitations History of Present Illness: HPI Narrative: Patient is a 69-year-old female patient with carcinoma he is under the management of the oncologist. She is currently receiving chemotherapy. She presents to the emergency department with complaints of epistaxis that started today. She states she was unable to get it under control on presents with her nose packed. She is a prison resident. She denies dizziness. She is on warfarin anticoagulation for DVTs. She had similar a few months ago and was successfully packed. MD complaint: epistaxis Location: bilateral nostril Onset (ago): hour(s) (5) Duration: constant Context: history of previous and warfarin use Associated symptoms: Reports no associated symptoms; Deny fever(s), headache(s) or vomiting Treatment prior to arrival: stuffed nose with tissue Review of Systems General: Reports: 10 or more systems reviewed and unremarkable except in HPI and below Const: Denies: fever, chills or body aches Eyes: Denies: change in vision or blurry vision ENMT: Reports: nose bleeds Card: Reports: chest pain; Denies: palpitations, irregular heart rhythm, edema or swelling of feet/ankles Resp: Denies: shortness of breath, productive cough or non-productive cough GI: Denies: abdominal pain, nausea or vomiting : Denies: flank pain, difficulty urinating, painful urination, urinary frequency, urinary urgency or urinary hesitancy Musc: Denies: neck pain, back pain or extremity swelling Skin/Breast: Denies: rash, itching or redness Neuro: Denies: headache, numbness in extremities or weakness in extremities Endo: Denies: excessive urination, excessive thirst or tired all the time PFS ED PFSH: Social History Smoking and tobacco status: never smoked Physical Exam Const: COMMON NORMALS: no apparent distress and healthy appearing HENMT: COMMON NORMALS: external nose normal NOSE: external nose normal and other (Both nostrils stuffed with tissue paper.When they were removed no active bleeding was noted. The right nares has dried blood. The left nare is clean.) Resp: COMMON NORMALS: normal respiratory effort, no retractions, no use of accessory muscles and clear to auscultation bilaterally AUSCULTATION: clear to auscultation bilaterally Cardio: COMMON NORMALS: regular rate, regular rhythm, S1 normal heart sound, S2 normal heart sound, no gallops, no clicks and no murmurs RATE: regular rate RHYTHM: regular rhythm HEART SOUNDS: S1 normal and S2 normal GI: COMMON NORMALS: normal to inspection, nondistended, normoactive bowel sounds and soft to palpation PALPATION: Yes soft Extremity: GENERAL: Yes normal exam except as noted Course Consultations: Consultation #1: Dr. Porras, oncologist. Give the patient a platelet transfusion as she can be discharged back to the prison since the bleeding has stopped. Time: 19:15 Vital Signs: Vital signs: Vital Signs Temperature 98.1 F 05/24/19 22:47 Pulse Rate 72 05/24/19 22:47 Respiratory Rate 14 05/24/19 22:47 Blood Pressure 147/62 05/24/19 22:47 Pulse Oximetry 93 05/24/19 22:47 MDM - Epistaxis MDM Narrative: Medical decision making narrative: 69-year-old female patient with a history of endometrial cancer who presents to the emergency department with epistaxis. She also has a history of DVT and is on warfarin. INR is 1.6, however her platelet count is 23,000. Because of her platelet count she is giving platelet transfusion and discharged back to the prison. Lab Data: Labs: Lab Results 05/24/19 05/24/19 05/24/19 Range/Units 17:45 17:45 17:45 WBC 4.2 (4.0-10.0) 10^3/ uL RBC 3.65 L (4.1-5.3) 10^6/u L Hgb 8.6 L (11.5-15.3) g/dL Hct 28.7 L (37.0-47.0) % MCV 78.6 L (81-99) fL MCH 23.6 L (28.0-34.0) pg MCHC 30.0 (30.0-36.0) g/dL RDW 19.0 H (12.1-15.1) % Plt Count 23 L* (130-400) 10^3/c mm Neut % (Auto) 46.8 % Lymph % (Auto) 35.0 % [place] % (Auto) 14.9 % Eos % (Auto) 0.7 % Baso % (Auto) 0.7 % Neut # (Auto) 2.0 (1.8-7.7) 10^3/u L Lymph # (Auto) 1.5 (0.8-4.8) 10^3/u L [place] # (Auto) 0.6 (0.2-0.9) 10^3/u L Eos # (Auto) 0.0 (0.0-0.8) 10^3/u L Baso # (Auto) 0.0 (0.0-0.1) 10^3/u L Nucleated RBC % (a uto) 0 % Nucleated RBCs # 0.0 /100WBC PT 19.30 H (10.5-13.3) SECO NDS INR 1.62 H (0.8-1.2) Sodium 139 (136-145) mmol/L Potassium 2.7 L* (3.5-5.1) mmol/L Chloride 98 (98-107) mmol/L Carbon Dioxide 29 (22-29) mmol/L Anion Gap 14.7 (5-19) BUN 18 (8-23) mg/dL Creatinine 0.7 (0.5-0.9) mg/dL Glucose 116 H (65-115) mg/dL Calculated Osmolal ity 285 (285-295) mOsm/k g Calcium 9.0 (8.5-10.5) mg/dL Total Bilirubin 0.4 (0.15-1.2) mg/dL AST 35 H (0-32) U/L ALT 20 (0-33) U/L Alkaline Phosphata se 164 H (35-105) IU/L Total Protein 6.6 (6.6-8.7) g/dL Albumin 3.5 (3.5-5.2) g/dL Globulin 3.1 (1.3-4.6) g/dL Blood Type Rho(D) Type 05/24/19 Range/Units 19:40 WBC (4.0-10.0) 10^3/ uL RBC (4.1-5.3) 10^6/u L Hgb (11.5-15.3) g/dL Hct (37.0-47.0) % MCV (81-99) fL MCH (28.0-34.0) pg MCHC (30.0-36.0) g/dL RDW (12.1-15.1) % Plt Count (130-400) 10^3/c mm Neut % (Auto) % Lymph % (Auto) % [place] % (Auto) % Eos % (Auto) % Baso % (Auto) % Neut # (Auto) (1.8-7.7) 10^3/u L Lymph # (Auto) (0.8-4.8) 10^3/u L [place] # (Auto) (0.2-0.9) 10^3/u L Eos # (Auto) (0.0-0.8) 10^3/u L Baso # (Auto) (0.0-0.1) 10^3/u L Nucleated RBC % (a uto) % Nucleated RBCs # /100WBC PT (10.5-13.3) SECO NDS INR (0.8-1.2) Sodium (136-145) mmol/L Potassium (3.5-5.1) mmol/L Chloride (98-107) mmol/L Carbon Dioxide (22-29) mmol/L Anion Gap (5-19) BUN (8-23) mg/dL Creatinine (0.5-0.9) mg/dL Glucose (65-115) mg/dL Calculated Osmolal ity (285-295) mOsm/k g Calcium (8.5-10.5) mg/dL Total Bilirubin (0.15-1.2) mg/dL AST (0-32) U/L ALT (0-33) U/L Alkaline Phosphata se (35-105) IU/L Total Protein (6.6-8.7) g/dL Albumin (3.5-5.2) g/dL Globulin (1.3-4.6) g/dL Blood Type O Positive Rho(D) Type Positive Discharge Plan Discharge Patient Disposition: [facility] Not MCR w Plan Readm Clinical Impression: Epistaxis, Thrombocytopenia, Subtherapeutic international normalized ratio (INR) Condition: Stable Prescriptions: Continued acetaminophen 325 mg Tablet 325 mg PO QID PRN (Reason: Pain) RF: 0 nystatin 100,000 unit/gram Ointment 1 applic TOPICAL BID RF: 0 citalopram 10 mg Tablet 10 mg PO DAILY RF: 0 hydrocodone-acetaminophen 5-325 mg Tablet 2 tab PO Q4H PRN (Reason: Pain) RF: 0 hydrocodone-acetaminophen 5-325 mg Tablet 1 tab PO Q4H PRN (Reason: Pain) RF: 0 Compazine 10 mg Tablet 10 mg PO Q4H PRN (Reason: Nausea) RF: 0 levothyroxine 100 mcg Tablet 100 mcg PO DAILY RF: 0 lorazepam 0.5 mg Tablet 0.5 mg PO TID PRN (Reason: Anxiety) RF: 0 bisacodyl 10 mg Suppository 10 mg WA DAILY PRN (Reason: Constipation) RF: 0 Benadryl 25 mg Capsule See Rx Instructions .ROUTE .COMPLEX PRN (Reason: allergy) RF: 0 ferrous sulfate 325 mg (65 mg iron) Tablet 325 mg PO DAILY RF: 0 dexamethasone 4 mg Tablet 20 mg PO Q21D RF: 0 dexamethasone 4 mg Tablet 20 mg PO Q21D RF: 0 warfarin 5 mg Tablet 5 mg PO BEDTIME RF: 0 Enema 19-7 gram/118 mL Enema 118 ml WA DAILY PRN (Reason: Constipation) RF: 0 mupirocin 2 % Ointment 1 applic TOPICAL TID RF: 0 lorazepam 1 mg Tablet 1 mg PO Q3H PRN (Reason: Nausea) RF: 0 Discharge Orders: Discharge Order (Routine); Ordered 05/24/19 Ordered By: Danial Rivera Referrals: Maria G Mccarthy MD [Primary Care Provider] - 1-3 days Yanick Porras MD [Hospitalist] - 4-7 days Discharge Diet: Usual diet Discharge Activity: Increase activity as tolerated Patient Instructions: Epistaxis (ED), Thrombocytopenia (ED) Activity Restrictions/Additional Instructions: Return for any new or worsening symptoms. Follow-up with Dr. Porras and your primary care provider as soon as you can get in. Do not pick your nose to prevent nosebleeds. You can use saline nasal rinse every 15 minutes to keep your nose moist. No vigorous blowing of your nose. Coding Level of Care Code ED Operations Support Specialist for Chg Fwd Exam Detailed
[2019-05-25] VITALS: BP 116/60; PULSE 79; RESP 20; O2SAT 94
[2019-05-25 00:07] VITALS: BP 116/60; PULSE 74; RESP 22; O2SAT 98
[2019-05-25] MEDS: HYDROcodone-acetaminophen 10-325 mg Tablet 1 TAB PO (00:08)
--- NOTE | 2019-05-25 00:08 | PC.NURSE ---
CALLED JAIL TO GIVE REPORT FOR PATIENT. JAIL EXPECTING PATIENTS RETURN
[2019-05-25 00:33] VITALS: BP 116/60; PULSE 73; RESP 22; O2SAT 96
== END 2019-05-25 00:35 ==
PROVIDERS: Emergency Provider Family Medicine; Family Provider Family Medicine; PCP Family Medicine
DX: R04.0 Epistaxis (principal); D69.6 Thrombocytopenia, unspecified; C54.1 Malignant neoplasm of endometrium; Z79.01 Long term (current) use of anticoagulants; Z86.718 Personal history of other venous thrombosis and embolism
CPT/HCPCS: 12345; 36430; 80053; 85025; 85610; 86900; 96374; 99283; J1642; P9016

== ENCOUNTER 2019-06-09 06:46 | Outpatient (RCR) | payer MEDICARE, MEDICAID, SELFPAY ==
[2019-05-26 09:39] LABS: Basophils % 0.4 %; Eosinophils % 0.2 %; Hematocrit 26.2 % (37.0-47.0); Lymphocytes # 1.7 10^3/uL (0.8-4.8); Lymphocytes % 32.8 %; Mean Corpuscular HGB Conc 30.5 g/dL (30.0-36.0); Mean Corpuscular Hemoglobin 24.1 pg (28.0-34.0); Mean Corpuscular Volume 78.9 fL (81-99); Mean Platelet Volume 10.3 fL (7.4-10.4); Monocytes # 0.5 10^3/uL (0.2-0.9); Monocytes % 10.1 %; Neutrophils # 2.7 10^3/uL (1.8-7.7); Nucleated Red Blood Cells % 0 %; Red Blood Count 3.32 10^6/uL (4.1-5.3); White Blood Count 5.2 10^3/uL (4.0-10.0)
[2019-05-26 10:19] LABS: Platelet Count 23 10^3/cmm (130-400)
[2019-06-02 09:51] LABS: Basophils % 0.1 %; Hematocrit 24.8 % (37.0-47.0); Hemoglobin 7.4 g/dL (11.5-15.3); Lymphocytes % 28.4 %; Mean Corpuscular HGB Conc 29.8 g/dL (30.0-36.0); Mean Corpuscular Hemoglobin 24.5 pg (28.0-34.0); Mean Corpuscular Volume 82.1 fL (81-99); Monocytes # 0.7 10^3/uL (0.2-0.9); Monocytes % 9.1 %; Neutrophils # 4.3 10^3/uL (1.8-7.7); Neutrophils % 60.4 %; Nucleated Red Blood Cells % 0.3 %; Platelet Count 220 10^3/cmm (130-400); Red Blood Count 3.02 10^6/uL (4.1-5.3); Red Cell Distribution Width 21.1 % (12.1-15.1); White Blood Count 7.1 10^3/uL (4.0-10.0)
[2019-06-02 10:17] LABS: Alanine Aminotransferase 13 U/L (0-33); Albumin Level 3.2 g/dL (3.5-5.2); Alkaline Phosphatase 138 IU/L (35-105); Anion Gap 15.6 (5-19); Aspartate Amino Transferase 31 U/L (0-32); Blood Urea Nitrogen 12 mg/dL (8-23); Calcium 8.8 mg/dL (8.5-10.5); Carbon Dioxide 30 mmol/L (22-29); Chloride 97 mmol/L (98-107); Globulin 3.3 g/dL (1.3-4.6); Glucose 130 mg/dL (65-115); Osmolality Calculated 288 mOsm/kg (285-295); Sodium 140 mmol/L (136-145); Total Bilirubin 0.2 mg/dL (0.15-1.2); Total Protein 6.5 g/dL (6.6-8.7)
[2019-06-02 10:41] LABS: Potassium 2.6 mmol/L (3.5-5.1)
[2019-06-03] VITALS (9 sets, daily range): BP systolic 127–162; BP diastolic 70–89; PULSE 66–87; RESP 18–20; TEMP 36.1–36.3; O2SAT 93–96
[2019-06-03] MEDS: acetaminophen 325 mg Tablet 650 MG PO (11:10)
[2019-06-03] MEDS: potassium chloride 20 MEQ in sodium chloride 0.9% 500 ML 250 MEQ IV (11:36)
[2019-06-03] MEDS: diphenhydrAMINE 25 mg Capsule PO (11:41)
[2019-06-03] MEDS: sodium chloride 0.9% 500 ML 999 ML IV (11:42)
--- NOTE | 2019-06-03 20:13 | ONC FU_ITS ---
Dr. Porras Patient Follow-Up Note Patient: Lorrie Mulligan Unit #: [id number]: [id number] Dicatated By: Yanick Porras M.D.Date of Visit:Jun 03, 2019 Onc Med Follow-up/Prog Note Chief Complaint: Endometrial cancer. 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 This patient has a remote history of lower extremity deep vein thrombosis and pulmonary embolism. She has been on chronic anticoagulation. She had subsequently developed chronic lymphedema and chronic venous stasis. She had recurrent episodes of cellulitis, for which she ultimately required placement of Port-A-Cath venous access device in 2013. She had previously been on disability due to back pain. At some point during this time her condition declined to the point that she required care home placement, and she ultimately became nonambulatory. In September 2018 she had presented with postmenopausal bleeding. Her pelvic ultrasound showed thickened endometrium. She was referred to Dr. Barry and she underwent hysteroscopy with D&C on 11/19/2018. Survey of the uterine cavity showed irregular thickened endometrium involving the fundus in both the right and left lateral zavala. Pathology on the endometrial curettings showed grade 2/4 endometrial adenocarcinoma. She was then referred to Dr. Porter and on 01/22/2019 she underwent robotic-assisted total laparoscopic hysterectomy, bilateral salpingo-oophorectomy, and omentectomy. Bilateral pelvic sentinel lymph node biopsy had been planned but was abandoned, as she had gross evidence of omental and peritoneal metastatic disease and it had become clear at that point that the procedure was going to be just palliative. Pathology showed a mixture of 90% clear cell carcinoma and 10% endometrioid adenocarcinoma. The tumor measured 6 x 6 cm. Myometrial invasion was measured at 75%. The ectocervical and parametrial margins were uninvolved. The omentum showed multifocal clear-cell carcinoma. Pathologic staging was pT2, pNx, pM1. She had an uneventful recovery in the care home. I had seen her initially on 04/11/2019. At that time she agreed to a trial of chemotherapy with carboplatin/paclitaxel. Her medical history includes chronic lower extremity lymphedema and recurrent cellulitis, lower extremity deep vein thrombosis and pulmonary emboli, chronic back pain, osteoporosis, and hypothyroidism. She is a nonsmoker. INTERIM HISTORY: She began cycle 1 of carboplatin/paclitaxel on 04/21/2019. She experienced no acute toxicity with the treatment. At day 9 she was severely neutropenic, ANC 200. She was not febrile. She recovered uneventfully with Neupogen. She continued with cycle 2 on 05/12/2019. On 05/19/2019 she was again neutropenic with ANC 100, but it was managed adequately on oral antibiotic coverage. She required 2 units PRBC for hemoglobin 7.2 g. On 05/24/2019 she was seen in the emergency room with epistaxis. She was given a platelet pheresis for a platelet count of 23,000. She is seen for a scheduled visit. She is still feeling pretty good generally, though she still has very limited activity. Her ECOG score is 3. She has good appetite. She has no fever, night sweats, or hot flashes. She does not complain of shortness of breath, cough, or chest pain. She has had no nausea. She sometimes has diarrhea. Bladder function has been OK. She has chronic pain. It is managed adequately with medication. She has no numbness/tingling or other focal neurologic symptoms. Medications: Acetaminophen 1 (325 mg) Tablet Oral q 4 hours PRN, Aspirin 1 Tablet (of 325 mg) Oral daily, Bactroban 1 (2 %) Cream Topical t.i.d. PRN, Benadryl Allergy 2 Tablet (of 25 mg) Oral PRN, Bisacodyl 1 (10 mg) Suppository Rectal daily PRN, Citalopram Hydrobromide 1 (10 mg) Tablet Oral daily, Dexamethasone (4 mg) Tablet Oral Take as Directed, Enema 1 (7-19 g/118mL) Enema Rectal daily PRN, Ferrous Sulfate 1 Tablet (of 325 (65 fe) mg) Oral daily, HYDROcodone-Acetaminophen 1 - 2 (5-325 mg) Tablet Oral q 4 hours PRN, Levothyroxine Sodium 1 (100 mcg) Tablet Oral daily, Prochlorperazine Maleate 1 Tablet (of 10 mg) Oral q 4 hours PRN Allergies: Adhesive Bandages, Furosemide, Penicillins, Sulfa Antibiotics, and Tamiflu. Review of Systems: Constitutional - She has very limited activity. She is almost completely bedridden. Appetite is good and weight is stable. No fever, chills, hot flashes, or night sweats. ECOG score is 3, ENMT - No sinus congestion/drainage. No mouth sores. No sore throat or difficulty swallowing, Hematologic/Lymphatic - She has easy bruising, Respiratory - She does not complain of shortness of breath. No cough. No pleuritic pain or hemoptysis, Cardiovascular - No angina pain. No palpitations, Gastrointestinal - No nausea or vomiting. No heartburn or acid reflux. She occasionally has diarrhea. No constipation. No blood in the stool or black stools, Genitourinary (F) - No dysuria or hematuria. No urinary frequency. No urgency or incontinence, Musculoskeletal - She has chronic pain. It is managed adequately with medication, Neurologic - No headache or dizziness. No numbness/paresthesias or other focal neurologic symptoms, Psychiatric - No anxiety or depression. She has chronic insomnia. Vital Signs: Performed on Jun 03, 2019 08:21 Height - 71.00 in Weight - 320.4 lbs BSA - 2.58 sq.m BMI - 44.69 (HIGH) Temperature - 97.9 F (LOW) Pulse - 77 /min Respiration - 20 /min BP - 119/71 mm(hg) O2 Sat - 95 % (LOW) Pain - 10 Physical Examination: Constitutional - She appears somewhat weak generally. She has complete alopecia, Eyes - Sclerae nonicteric. Conjunctivae clear, ENMT - No lesions noted in the oral cavity, Hematologic/Lymphatic - No cervical, clavicular, or axillary adenopathy, Respiratory - Lungs are clear with good air movement bilaterally, Cardiovascular - Heart rythm is regular. There is a II/ systolic murmur. There is no gallop or rub noted, Abdomen - Moderately distended but soft. Liver and spleen do not appear enlarged. There is no abdominal mass or ascites noted and there is no inguinal adenopathy, Extremities - Chronic venous stasis changes in both lower legs. There is currently no edema. Dorsalis pedis pulses are palpable bilaterally, Integumentary - There is a venous stasis ulceration on the left lower anterior tibial area, Neurologic - No focal neurologic deficits noted. Lab/Imaging: Test performed on Jun 02, 2019 07:44 Sodium 140 mmol/L Potassium 2.6 mmol/L Chloride 97 mmol/L CO2 30 mmol/L Anion Gap 15.6 BUN 12 mg/dL Creatinine 0.8 mg/dL Cr Clearance (Est) 147.9800 mL/min Glucose 130 mg/dL Calcium 8.8 mg/dL Protein, Total 6.5 g/dL Albumin 3.2 g/dL Globulin 3.3 g/dL Bilirubin, Total 0.2 mg/dL ALT (SGPT) 13 U/L AST (SGOT) 31 U/L Alkaline Phosphatase 138 IU/L WBC 7.1 10 3/uL RBC 3.02 10 6/uL HGB 7.4 g/dL HCT 24.8 % MCV 82.1 fL MCH 24.5 pg MCHC 29.8 g/dL RDW 21.1 % Platelet Count 220 10 3/cmm MPV 10.0 fL Neutrophils 4.3 10 3/uL Lymphocytes 2.0 10 3/uL Monocytes 0.7 10 3/uL Eosinophils 0.0 10 3/uL Basophils 0.0 10 3/uL Neutrophil % 60.4 % Lymphocyte % 28.4 % Monocyte % 9.1 % Eosinophil % 0.0 % Basophils % 0.1 % Impression: 1. 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 2. She underwent palliative hysterectomy/bilateral salpingo-oophorectomy and omentectomy on 01/22/2019. 3. She has become debilitated due to chronic lymphedema of the lower extremities and chronic lower extremity venous stasis. 4. She has had recurrent episodes of cellulitis requiring placement of Port-A-Cath venous access device. 5. She has a hypochromic, microcytic anemia with transferrin saturation consistent with iron deficiency. Her other medical illnesses include: 6. History of lower extremity deep vein thrombosis and pulmonary emboli, for which she is on chronic anticoagulation. 7. She has a history of chronic back pain, for which she had been on disability. 8. Osteoporosis. 9. Hypothyroidism. She has been undergoing a trial of chemotherapy with carboplatin/paclitaxel, cycle 1 beginning on 04/21/2019. With the 1st cycle she was severely neutropenic at day 9, but she recovered uneventfully with Neupogen. She otherwise tolerated the treatment very well, though she was still moderately anemic despite oral iron supplementation. She continued with cycle 2 on 05/12/2019. It was complicated by severe pancytopenia, requiring PRBC and platelet transfusions. She again has had uneventful recovery. Due to the pattern of her metastatic disease, it will be very difficult to evaluate her for response. Plan: She will be transfused 2 units PRBC today. She will be given her 2nd infusion of Injectafer. She will return or Saturday for cycle 3 of carboplatin/paclitaxel chemotherapy. It will be administered with dose reductions. She also will continue Neulasta prophylactically. Blood counts will be monitored weekly. She returns in 3 weeks. Signed By: Yanick Porras M.D. <<Signature on File>>
[2019-06-08 10:31] LABS: Basophils % 0.1 %; Eosinophils % 0.1 %; Hematocrit 34.6 % (37.0-47.0); Hemoglobin 10.4 g/dL (11.5-15.3); Lymphocytes # 1.8 10^3/uL (0.8-4.8); Lymphocytes % 24.9 %; Mean Corpuscular HGB Conc 30.1 g/dL (30.0-36.0); Mean Corpuscular Hemoglobin 26.7 pg (28.0-34.0); Mean Corpuscular Volume 88.7 fL (81-99); Mean Platelet Volume 9.7 fL (7.4-10.4); Monocytes # 0.7 10^3/uL (0.2-0.9); Monocytes % 10.1 %; Neutrophils # 4.6 10^3/uL (1.8-7.7); Neutrophils % 64.4 %; Nucleated Red Blood Cells % 0 %; Platelet Count 357 10^3/cmm (130-400); Red Cell Distribution Width 26.7 % (12.1-15.1); White Blood Count 7.2 10^3/uL (4.0-10.0)
[2019-06-08 10:52] LABS: Alanine Aminotransferase 19 U/L (0-33); Alkaline Phosphatase 146 IU/L (35-105); Anion Gap 16.9 (5-19); Aspartate Amino Transferase 50 U/L (0-32); Blood Urea Nitrogen 13 mg/dL (8-23); Calcium 8.9 mg/dL (8.5-10.5); Carbon Dioxide 28 mmol/L (22-29); Chloride 100 mmol/L (98-107); Globulin 3.6 g/dL (1.3-4.6); Glucose 77 mg/dL (65-115); Osmolality Calculated 287 mOsm/kg (285-295); Potassium 3.9 mmol/L (3.5-5.1); Sodium 141 mmol/L (136-145); Total Bilirubin 0.4 mg/dL (0.15-1.2); Total Protein 6.6 g/dL (6.6-8.7)
[2019-06-09] MEDS: sodium chloride 0.9% 250 ML 100 ML IV (09:53)
[2019-06-09] MEDS: pegfilgrastim 6 mg/0.6 mL Kit (onpro) SUBCUT (14:55)
== END 2019-06-11 23:59 | disposition home or self-care (01) ==
LOC: ONCMED 06:46
PROVIDERS: Family Provider Family Medicine; PCP Family Medicine; Visit Provider Internal Medicine Medical Oncology
DX: Z51.11 Encounter for antineoplastic chemotherapy (principal); C54.1 Malignant neoplasm of endometrium; C78.6 Secondary malignant neoplasm of retroperitoneum and peritoneum; D50.9 Iron deficiency anemia, unspecified; Z76.89 Persons encountering health services in other specified circumstances; I89.0 Lymphedema, not elsewhere classified; I87.8 Other specified disorders of veins; G89.29 Other chronic pain; M54.9 Dorsalgia, unspecified; M81.0 Age-related osteoporosis without current pathological fracture; E03.9 Hypothyroidism, unspecified; Z90.722 Acquired absence of ovaries, bilateral; Z90.710 Acquired absence of both cervix and uterus; Z95.828 Presence of other vascular implants and grafts; Z86.718 Personal history of other venous thrombosis and embolism; Z79.01 Long term (current) use of anticoagulants
CPT/HCPCS: 36415; 36430; 80053; 85025; 86850; 86900; 86920; 96365; 96366; 96367; 96372; 96413; 96415; 96417; 99214; J1100; J1200; J1439; J1453; J2469; J2505; J3480; J3490; J7030; J7040; J7050; J9045; J9267; P9040

== ENCOUNTER 2019-07-07 09:50 | Outpatient (RCR) | payer MEDICARE, MEDICAID, SELFPAY ==
[2019-06-16 15:06] LABS: Basophils % 0.6 %; Eosinophils # 0.1 10^3/uL (0.0-0.8); Eosinophils % 3.8 %; Hematocrit 29.8 % (37.0-47.0); Hemoglobin 9.1 g/dL (11.5-15.3); Lymphocytes % 62.3 %; Mean Corpuscular HGB Conc 30.5 g/dL (30.0-36.0); Mean Corpuscular Hemoglobin 27.2 pg (28.0-34.0); Mean Corpuscular Volume 89.2 fL (81-99); Mean Platelet Volume 11.3 fL (7.4-10.4); Monocytes # 0.4 10^3/uL (0.2-0.9); Monocytes % 23.3 %; Nucleated Red Blood Cells % 0 %; Platelet Count 112 10^3/cmm (130-400); Red Blood Count 3.34 10^6/uL (4.1-5.3); White Blood Count 1.6 10^3/uL (4.0-10.0)
[2019-06-16 15:57] LABS: Alanine Aminotransferase 16 U/L (0-33); Albumin Level 3.3 g/dL (3.5-5.2); Alkaline Phosphatase 147 IU/L (35-105); Anion Gap 16.4 (5-19); Aspartate Amino Transferase 25 U/L (0-32); Blood Urea Nitrogen 13 mg/dL (8-23); Calcium 8.5 mg/dL (8.5-10.5); Carbon Dioxide 26 mmol/L (22-29); Chloride 96 mmol/L (98-107); Globulin 3.3 g/dL (1.3-4.6); Glucose 89 mg/dL (65-115); Osmolality Calculated 276 mOsm/kg (285-295); Potassium 3.4 mmol/L (3.5-5.1); Sodium 135 mmol/L (136-145); Total Bilirubin 0.7 mg/dL (0.15-1.2); Total Protein 6.6 g/dL (6.6-8.7)
[2019-06-16 16:23] LABS: Neutrophils # 0.2 10^3/uL (1.8-7.7)
[2019-06-16 16:24] LABS: Slide Review Slide Review Perform
[2019-06-23 15:28] LABS: Basophils % 0.2 %; Eosinophils % 0.4 %; Hemoglobin 8.6 g/dL (11.5-15.3); Lymphocytes # 1.2 10^3/uL (0.8-4.8); Lymphocytes % 23.2 %; Mean Corpuscular HGB Conc 30.7 g/dL (30.0-36.0); Mean Corpuscular Hemoglobin 28.3 pg (28.0-34.0); Mean Corpuscular Volume 92.1 fL (81-99); Mean Platelet Volume 10.5 fL (7.4-10.4); Monocytes # 0.5 10^3/uL (0.2-0.9); Monocytes % 9.8 %; Neutrophils % 57.6 %; Nucleated Red Blood Cells % 0 %; Platelet Count 43 10^3/cmm (130-400); Red Blood Count 3.04 10^6/uL (4.1-5.3); Red Cell Distribution Width 24.3 % (12.1-15.1); White Blood Count 5.2 10^3/uL (4.0-10.0)
[2019-06-23 15:51] LABS: Slide Review Slide Review Perform
[2019-06-23 15:56] LABS: Alanine Aminotransferase 18 U/L (0-33); Albumin Level 3.3 g/dL (3.5-5.2); Alkaline Phosphatase 147 IU/L (35-105); Aspartate Amino Transferase 35 U/L (0-32); Blood Urea Nitrogen 11 mg/dL (8-23); Calcium 8.9 mg/dL (8.5-10.5); Carbon Dioxide 31 mmol/L (22-29); Chloride 101 mmol/L (98-107); Globulin 3.3 g/dL (1.3-4.6); Glucose 137 mg/dL (65-115); Osmolality Calculated 302 mOsm/kg (285-295); Sodium 147 mmol/L (136-145); Total Bilirubin 0.2 mg/dL (0.15-1.2); Total Protein 6.6 g/dL (6.6-8.7)
[2019-06-30 10:47] LABS: Basophils % 0.1 %; Eosinophils % 0.1 %; Hematocrit 26.1 % (37.0-47.0); Hemoglobin 7.9 g/dL (11.5-15.3); Lymphocytes # 1.9 10^3/uL (0.8-4.8); Lymphocytes % 22.1 %; Mean Corpuscular HGB Conc 30.3 g/dL (30.0-36.0); Mean Corpuscular Hemoglobin 29.3 pg (28.0-34.0); Mean Corpuscular Volume 96.7 fL (81-99); Mean Platelet Volume 9.6 fL (7.4-10.4); Monocytes # 1.1 10^3/uL (0.2-0.9); Monocytes % 12.4 %; Neutrophils # 5.5 10^3/uL (1.8-7.7); Neutrophils % 64.5 %; Nucleated Red Blood Cells % 0 %; Platelet Count 178 10^3/cmm (130-400); Red Cell Distribution Width 27.6 % (12.1-15.1); White Blood Count 8.5 10^3/uL (4.0-10.0)
[2019-06-30 12:29] LABS: Alanine Aminotransferase 17 U/L (0-33); Alkaline Phosphatase 137 IU/L (35-105); Anion Gap 16.4 (5-19); Aspartate Amino Transferase 34 U/L (0-32); Blood Urea Nitrogen 11 mg/dL (8-23); Carbon Dioxide 28 mmol/L (22-29); Chloride 101 mmol/L (98-107); Globulin 3.2 g/dL (1.3-4.6); Glucose 76 mg/dL (65-115); Iron 50 ug/dL (37-145); Osmolality Calculated 289 mOsm/kg (285-295); Percent Saturation 28.9 % (20-50); Potassium 3.4 mmol/L (3.5-5.1); Sodium 142 mmol/L (136-145); Total Bilirubin 0.4 mg/dL (0.15-1.2); Total Iron Binding Capacity 173 mcg/dl; Total Protein 6.2 g/dL (6.6-8.7); Unsaturated Iron Binding 123 ug/dL (112-347)
[2019-07-01] VITALS (10 sets, daily range): BP systolic 98–127; BP diastolic 55–71; PULSE 69–85; RESP 17–18; TEMP 35.8–36.6; O2SAT 92–98
--- NOTE | 2019-07-01 09:05 | ONC FU_ITS ---
Dr. Porras Patient Follow-Up Note Patient: Lorrie Mulligan Unit #: [id number]: 1950 Dicatated By: Yanick Porras M.D.Date of Visit:July 01, 2019 Onc Med Follow-up/Prog Note Chief Complaint: Endometrial cancer. 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 This patient has a remote history of lower extremity deep vein thrombosis and pulmonary embolism. She has been on chronic anticoagulation. She had subsequently developed chronic lymphedema and chronic venous stasis. She had recurrent episodes of cellulitis, for which she ultimately required placement of Port-A-Cath venous access device in 2013. She had previously been on disability due to back pain. At some point during this time her condition declined to the point that she required custodial placement, and she ultimately became nonambulatory. In September 2018 she had presented with postmenopausal bleeding. Her pelvic ultrasound showed thickened endometrium. She was referred to Dr. Barry and she underwent hysteroscopy with D&C on 11/19/2018. Survey of the uterine cavity showed irregular thickened endometrium involving the fundus in both the right and left lateral zavala. Pathology on the endometrial curettings showed grade 2/4 endometrial adenocarcinoma. She was then referred to Dr. Porter and on 01/22/2019 she underwent robotic-assisted total laparoscopic hysterectomy, bilateral salpingo-oophorectomy, and omentectomy. Bilateral pelvic sentinel lymph node biopsy had been planned but was abandoned, as she had gross evidence of omental and peritoneal metastatic disease and it had become clear at that point that the procedure was going to be just palliative. Pathology showed a mixture of 90% clear cell carcinoma and 10% endometrioid adenocarcinoma. The tumor measured 6 x 6 cm. Myometrial invasion was measured at 75%. The ectocervical and parametrial margins were uninvolved. The omentum showed multifocal clear-cell carcinoma. Pathologic staging was pT2, pNx, pM1. She had an uneventful recovery in the custodial. I had seen her initially on 04/11/2019. At that time she agreed to a trial of chemotherapy with carboplatin/paclitaxel. Her medical history includes chronic lower extremity lymphedema and recurrent cellulitis, lower extremity deep vein thrombosis and pulmonary emboli, chronic back pain, osteoporosis, and hypothyroidism. She is a nonsmoker. INTERIM HISTORY: She began cycle 1 of carboplatin/paclitaxel on 04/21/2019. She experienced no acute toxicity with the treatment. At day 9 she was severely neutropenic, ANC 200. She was not febrile. She recovered uneventfully with Neupogen. She continued with cycle 2 on 05/12/2019. On 05/19/2019 she was again neutropenic with ANC 100, but it was managed adequately on oral antibiotic coverage. She required 2 units PRBC for hemoglobin 7.2 g. On 05/24/2019 she was seen in the emergency room with epistaxis. She was given a platelet pheresis for a platelet count of 23,000. She recovered uneventfully and she then continued with cycle 3 on 06/09/2019, but with reductions in the dosages of both the carboplatin and the paclitaxel. In the meantime, she also was given parenteral iron replacement with 2 infusions of Injectafer. She is seen for a scheduled visit. She has been feeling fine. She says her energy is fine, but she continues to have very limited activity. She is confined to bed or wheelchair. ECOG score is 3. Her appetite is good. She has no fever or night sweats. She has had no mouth sores. She does not complain of shortness of breath, cough, or chest pain. She has no GI or complaints. She does have some back pain, but mainly just when she is being moved. It is managed adequately with medication. She does not complain of headache or dizziness. She has a little numbness in the index and middle fingers of her right hand. She has no other focal neurologic symptoms. Medications: Acetaminophen 1 (325 mg) Tablet Oral q 4 hours PRN, Aspirin 1 Tablet (of 325 mg) Oral daily, Bactroban 1 (2 %) Cream Topical t.i.d. PRN, Benadryl Allergy 2 Tablet (of 25 mg) Oral PRN, Bisacodyl 1 (10 mg) Suppository Rectal daily PRN, Citalopram Hydrobromide 1 (10 mg) Tablet Oral daily, Dexamethasone (4 mg) Tablet Oral Take as Directed, Enema 1 (7-19 g/118mL) Enema Rectal daily PRN, Ferrous Sulfate 1 Tablet (of 325 (65 fe) mg) Oral daily, HYDROcodone-Acetaminophen 1 - 2 (5-325 mg) Tablet Oral q 4 hours PRN, Levothyroxine Sodium 1 (100 mcg) Tablet Oral daily, Prochlorperazine Maleate 1 Tablet (of 10 mg) Oral q 4 hours PRN Allergies: Adhesive Bandages, Furosemide, Penicillins, Sulfa Antibiotics, and Tamiflu. Review of Systems: Constitutional - She says her energy is fine, but she has very limited activity. She is confined to bed or wheel chair. Appetite is good and weight is stable. No fever, chills, hot flashes, or night sweats. ECOG score is 3, ENMT - No sinus congestion/drainage. No mouth sores. No sore throat or difficulty swallowing, Hematologic/Lymphatic - She bruises very easily, Respiratory - No shortness of breath. No cough. No pleuritic pain or hemoptysis, Cardiovascular - No angina pain. No palpitations, Gastrointestinal - No nausea or vomiting. No heartburn or acid reflux. No diarrhea. No constipation. No blood in the stool or black stools, Genitourinary (F) - No dysuria or hematuria. No urinary frequency. No urgency or incontinence, Musculoskeletal - She has some back pain, but mainly just when she is being moved. It is managed adequately with her pain medication, Integumentary - She has some skin ulcerations, Neurologic - No headache or dizziness. She has a little numbness/paresthesias in the index and middle fingers of the right hand. She has no other focal neurologic symptoms, Psychiatric - No anxiety or depression. She has chronic insomnia. Vital Signs: Performed on July 01, 2019 08:27 Height - 71.00 in Temperature - 96.9 F (LOW) Pulse - 82 /min Respiration - 22 /min BP - 128/80 mm(hg) O2 Sat - 94 % (LOW) Pain - 7 Physical Examination: Constitutional - She appears somewhat pale, but not acutely ill. She has complete alopecia, Eyes - Sclerae nonicteric. Conjunctivae clear, ENMT - No lesions noted in the oral cavity, Hematologic/Lymphatic - No cervical, clavicular, or axillary adenopathy, Respiratory - Lungs are clear with good air movement bilaterally, Cardiovascular - Heart rythm is regular. There is a II/ systolic murmur. There is no gallop or rub noted, Abdomen - Moderately distended but soft. Liver and spleen do not appear enlarged. There is no abdominal mass or ascites noted and there is no inguinal adenopathy, Extremities - Chronic venous stasis changes in both lower legs. There is no edema. Dorsalis pedis pulses are palpable bilaterally, Integumentary - There is a skin ulceration on the left lower anterior tibial area and there is a new, superficial ulceration on the dorsum of the left great toe, Neurologic - No focal neurologic deficits noted. Lab/Imaging: CBC shows hemoglobin 7.9 g, white blood cell count 8500, and platelet count 178,000. Comprehensive metabolic profile is unremarkable except for slightly elevated alkaline phosphatase at 137/105 IU/L. The serum iron studies show normal transferrin saturation at 28%. Impression: 1. 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 2. She underwent palliative hysterectomy/bilateral salpingo-oophorectomy and omentectomy on 01/22/2019. 3. She has become debilitated due to chronic lymphedema of the lower extremities and chronic lower extremity venous stasis. 4. She has had recurrent episodes of cellulitis requiring placement of Port-A-Cath venous access device. 5. She has a hypochromic, microcytic anemia with transferrin saturation consistent with iron deficiency. Her other medical illnesses include: 6. History of lower extremity deep vein thrombosis and pulmonary emboli, for which she is on chronic anticoagulation. 7. She has a history of chronic back pain, for which she had been on disability. 8. Osteoporosis. 9. Hypothyroidism. She has been undergoing a trial of chemotherapy with carboplatin/paclitaxel, cycle 1 beginning on 04/21/2019. With the 1st cycle she was severely neutropenic at day 9, but she recovered uneventfully with Neupogen. She otherwise tolerated the treatment very well, though she was still moderately anemic despite oral iron supplementation. She continued with cycle 2 on 05/12/2019. It was complicated by severe pancytopenia, requiring PRBC and platelet transfusions. She again had uneventful recovery. She was able to continue with cycle 3 on 06/09/2019, but with both the carboplatin and paclitaxel administered at reduced dosages. At this point she appears to be tolerating the chemotherapy with acceptable toxicity. She does have chemotherapy-induced pancytopenia, but her granulocyte count and platelet count have remained adequate. She is still moderately anemic. Due to the pattern of her metastatic disease, she has not been evaluable for response. Plan: She will be transfused 2 units PRBC today. She will continue with cycle 4 of carboplatin/paclitaxel. The dosages will remain the same. She will be given Neulasta prophylactically. Blood counts will be monitored weekly. She returns in 3 weeks. Signed By: Yanick Porras M.D. <<Signature on File>>
[2019-07-01] MEDS: pegfilgrastim 6 mg/0.6 mL Kit (onpro) SUBCUT (18:50)
[2019-07-02] MEDS: acetaminophen 325 mg Tablet 650 MG PO (15:40)
[2019-07-02] MEDS: bumetanide 0.25 mg/mL SDV 4 mL 0.5 MG IV (15:43)
[2019-07-02] MEDS: diphenhydrAMINE 25 mg Capsule PO (15:43)
[2019-07-02] MEDS: sodium chloride 0.9% 250 ML 999 ML IV (15:44)
[2019-07-07 10:33] LABS: Basophils % 1.6 %; Eosinophils % 0.8 %; Hematocrit 27.5 % (37.0-47.0); Hemoglobin 8.5 g/dL (11.5-15.3); Lymphocytes # 1.1 10^3/uL (0.8-4.8); Lymphocytes % 45.3 %; Mean Corpuscular HGB Conc 30.9 g/dL (30.0-36.0); Mean Corpuscular Volume 97.2 fL (81-99); Mean Platelet Volume 10.2 fL (7.4-10.4); Monocytes # 0.1 10^3/uL (0.2-0.9); Monocytes % 3.7 %; Neutrophils # 1.2 10^3/uL (1.8-7.7); Neutrophils % 47.4 %; Nucleated Red Blood Cells % 0 %; Platelet Count 99 10^3/cmm (130-400); Red Blood Count 2.83 10^6/uL (4.1-5.3); Red Cell Distribution Width 23.1 % (12.1-15.1); White Blood Count 2.4 10^3/uL (4.0-10.0)
[2019-07-07 10:50] LABS: Slide Review Slide Review Perform
== END 2019-07-12 23:59 | disposition home or self-care (01) ==
LOC: ONCMED 09:50
PROVIDERS: PCP Family Medicine; Visit Provider Internal Medicine Medical Oncology
DX: Z51.11 Encounter for antineoplastic chemotherapy (principal); C54.1 Malignant neoplasm of endometrium; M81.0 Age-related osteoporosis without current pathological fracture; E03.9 Hypothyroidism, unspecified; Z79.899 Other long term (current) drug therapy
CPT/HCPCS: 36415; 36430; 80053; 83540; 83550; 85025; 86850; 86900; 86920; 96361; 96372; 96375; 96413; 96415; 96417; 99214; J1100; J1200; J1453; J2469; J2505; J3490; J7030; J7040; J7050; J9045; J9267; P9040

== ENCOUNTER 2019-07-22 06:44 | Outpatient (RCR) | payer MEDICARE, MEDICAID, SELFPAY ==
[2019-07-14 10:32] LABS: Basophils % 0.4 %; Eosinophils % 0.8 %; Hematocrit 29.2 % (37.0-47.0); Lymphocytes # 1.7 10^3/uL (0.8-4.8); Lymphocytes % 35.9 %; Mean Corpuscular HGB Conc 30.8 g/dL (30.0-36.0); Mean Corpuscular Volume 100.7 fL (81-99); Monocytes # 0.4 10^3/uL (0.2-0.9); Monocytes % 8.9 %; Neutrophils # 2.5 10^3/uL (1.8-7.7); Neutrophils % 51.5 %; Nucleated Red Blood Cells % 0 %; Platelet Count 38 10^3/cmm (130-400); Red Cell Distribution Width 22.5 % (12.1-15.1); White Blood Count 4.9 10^3/uL (4.0-10.0)
[2019-07-21 10:16] LABS: Basophils % 0.3 %; Eosinophils % 0.2 %; Hemoglobin 8.1 g/dL (11.5-15.3); Lymphocytes # 1.8 10^3/uL (0.8-4.8); Lymphocytes % 29.3 %; Mean Corpuscular HGB Conc 31.2 g/dL (30.0-36.0); Mean Corpuscular Hemoglobin 32.4 pg (28.0-34.0); Mean Platelet Volume 10.1 fL (7.4-10.4); Monocytes # 0.5 10^3/uL (0.2-0.9); Monocytes % 8.1 %; Neutrophils # 3.8 10^3/uL (1.8-7.7); Neutrophils % 60.8 %; Nucleated Red Blood Cells % 0 %; Platelet Count 124 10^3/cmm (130-400); Red Cell Distribution Width 23.3 % (12.1-15.1); White Blood Count 6.2 10^3/uL (4.0-10.0)
== END 2019-08-11 23:59 | disposition home or self-care (01) ==
LOC: ONCMED 06:44
PROVIDERS: Internal Medicine Medical Oncology; PCP Family Medicine; Visit Provider Nurse Practitioner
DX: C54.1 Malignant neoplasm of endometrium (principal); G89.29 Other chronic pain; M54.5 Low back pain; E03.9 Hypothyroidism, unspecified; M81.0 Age-related osteoporosis without current pathological fracture
CPT/HCPCS: 36415; 85025

== ENCOUNTER 2019-08-05 00:38 | Inpatient (IN) | payer MEDICARE, MEDICAID, SELFPAY ==
[2019-08-05] VITALS (252 sets, daily range): BP systolic 79–163; BP diastolic 43–119; PULSE 0–124; RESP 0–37; TEMP 36.1–37.2; O2SAT 83–100
--- NOTE | 2019-08-05 00:47 | XRR_ITS ---
PROCEDURE INFORMATION: Exam: XR Chest, 1 View Exam date and time: 08/05/2019 1:22 AM Age: 69 years old Clinical indication: Fever; Patient HX: PT unresponsive TECHNIQUE: Imaging protocol: XR of the chest Views: 1 view. COMPARISON: No relevant prior studies available. FINDINGS: Tubes, catheters and devices: Chest port via the left subclavian approach with the tip overlying the superior vena cava. Lungs: Unremarkable. No consolidation. Pleural space: Severe elevation of the right hemidiaphragm versus large right pleural effusion. Heart/Mediastinum: Unremarkable. No cardiomegaly. Bones/joints: Unremarkable. XR/XR chest 1V portable [id number] IMPRESSION: Severe elevation of the right hemidiaphragm versus large right pleural effusion.
--- NOTE | 2019-08-05 00:47 | CTR_ITS ---
PROCEDURE INFORMATION: Exam: CT Head Without Contrast Exam date and time: 08/05/2019 1:09 AM Age: 69 years old Clinical indication: Altered mental status/memory loss; Additional info: AMS TECHNIQUE: Imaging protocol: Computed tomography of the head without contrast. Radiation optimization: All CT scans at this facility use at least one of these dose optimization techniques: automated exposure control; mA and/or kV adjustment per patient size (includes targeted exams where dose is matched to clinical indication); or iterative reconstruction. COMPARISON: No relevant prior studies available. RADIATION DOSE METRICS: Total DLP (mGy-cm): 964.76 FINDINGS: Brain: No acute intracranial hemorrhage or mass effect. There is mild decreased attenuation in the periventricular white matter, likely from microvascular disease. No definite acute infarct by CT. MRI could be more sensitive/specific for detection, as clinically directed. Ventricles: Ventricle size is normal for age. Bones/joints: No definite acute skull fracture. Sinuses: Minimal mucosal thickening in the right maxillary sinus. Included paranasal sinuses otherwise appear essentially clear. Mastoid air cells: Opacification/fluid throughout the mastoid air cells bilaterally. There is also some fluid in the middle ear cavities bilaterally, probably greater on the left. Findings could represent acute or chronic mastoiditis/otitis. Please correlate clinically. Vasculature: Vascular calcifications in the internal carotid and vertebral basilar systems. CT/CT head wo con* [id number] IMPRESSION: 1. No acute intracranial hemorrhage or mass effect. 2. Changes of microvascular disease. 3. No definite acute infarct by CT, see above. 4. Paranasal and mastoid sinus findings as discussed above. 5. Other findings discussed above. Radiation Dose CTDIVOL = (mGy): DLP = 964.76 (mGy-cm)
--- NOTE | 2019-08-05 00:50 | W.ED.AMS ---
HPI - Altered Mental Status General: Chief Complaint: Altered Mental Status Stated Complaint: AMS Time Seen by Provider: 08/05/19 00:50 Source: EMS Mode of arrival: EMS Limitations: altered mental status History of Present Illness: HPI narrative: 69-year-old female who is here from local assisted with altered mental status. Per assisted patient is usually awake and alert is now just moaning and unable to answer any questions. Patient was found to be hypotensive there they did lab work and had a white count of 33. Patient had diarrhea here. Patient is unable to answer any questions or form any words at this time. She does have a history of cancer endometrial. Review of Systems General: Reports: ROS unobtainable due to mental status PFSH ED PFSH: Medical History (Updated 08/05/19 @ 03:26 by Malina Allen MD) DVT (deep venous thrombosis) 2007 Endometrial adenocarcinoma Stage IV with evidence of peritoneal omental metastatic disease Lymphedema Osteoporosis Port-A-Cath in place For venous access for recurrent cellulitis, Port-A-Cath placement 2013 Postmenopausal bleeding Pulmonary embolism Recurrent cellulitis Surgical History (Updated 08/05/19 @ 03:03 by Malina Allen MD) H/O hemorrhoidectomy History of bilateral oophorectomy History of hysterectomy for cancer Status post right breast lumpectomy Family History (Updated 08/05/19 @ 03:04 by Malina Allen MD) Mother CAD (coronary artery disease) Social History (Updated 08/05/19 @ 03:04 by Malina Allen MD) Smoking and tobacco status: never smoked Alcohol intake: never Substance/Drug Use: never Housing: Shelter Physical Exam Const: COMMON NORMALS: negative for patient oriented x3 and negative for alert EXAM LIMITATIONS: altered mental status GENERAL APPEARANCE: ill appearing NUTRITIONAL APPEARANCE: obese HENMT: COMMON NORMALS: normocephalic and atraumatic HEAD & SCALP: normocephalic and atraumatic Eye: COMMON NORMALS: Equal, round and reactive pupils present PUPIL: Yes Equal, round and reactive pupils present Neck/C-Spine: COMMON NORMALS: full ROM and supple Chest: COMMONS NORMALS: normal inspection of the chest Resp: COMMON NORMALS: normal respiratory effort, No retractions, No use of accessory muscles and clear to auscultation bilaterally AUSCULTATION: clear to auscultation bilaterally Cardio: COMMON NORMALS: regular rate and regular rhythm RATE: regular rate RHYTHM: regular rhythm GI: COMMON NORMALS: Soft to palpation and non-tender PALPATION: Yes Soft to palpation Extremity: COMMON NORMALS: normal to inspection Neuro: COMMON NORMALS: negative for patient oriented x3 SENSORIUM/ORIENTATION: No alert Psych: COMMON NORMALS: negative for mental status grossly normal Skin: COMMON NORMALS: negative for no rashes or lesions noted GENERAL SKIN EXAM: rashes and/or lesions noted Course Vital Signs: Vital signs: Vital Signs Temperature 98.9 F 08/05/19 02:45 Pulse Rate 87 08/05/19 03:30 Respiratory Rate 23 H 08/05/19 03:25 Blood Pressure 100/61 08/05/19 03:30 Pulse Oximetry 94 08/05/19 03:05 MDM - Altered Mental Status MDM Narrative: Medical decision making narrative: Lorrie presents here with septic shock from a cystitis. Patient's blood pressure is much improved after IV fluids and is currently 106/69. Her mentation is improving currently as well with improvement of her blood pressures. Patient's head CT is normal and she has no signs of pneumonia. Spoke to hospitalist and will admit. Lab Data: Labs: Lab Results 08/05/19 08/05/19 08/05/19 Range/Units 01:02 01:02 01:02 WBC 30.4 H* (4.0-10.0) 10^3/ uL RBC 3.13 L (4.1-5.3) 10^6/u L Hgb 10.5 L (11.5-15.3) g/dL Hct 32.9 L (37.0-47.0) % MCV 105.1 H (81-99) fL MCH 33.5 (28.0-34.0) pg MCHC 31.9 (30.0-36.0) g/dL RDW 20.1 H (12.1-15.1) % Plt Count 108 L (130-400) 10^3/c mm MPV 10.7 H (7.4-10.4) fL Neut % (Auto) Piped Pocket Machine Operator Lymph % (Auto) Piped Pocket Machine Operator [place] % (Auto) Piped Pocket Machine Operator Eos % (Auto) Piped Pocket Machine Operator Baso % (Auto) Piped Pocket Machine Operator Neut # (Auto) Piped Pocket Machine Operator Lymph # (Auto) Piped Pocket Machine Operator [place] # (Auto) Piped Pocket Machine Operator Eos # (Auto) Piped Pocket Machine Operator Baso # (Auto) Piped Pocket Machine Operator Nucleated RBC % (a uto) 0 % Total Counted 100 (0-100) Absolute Neutrophi ls 27.7 H (1.4-6.5) 10^3/c mm Segmented Neutroph ils 74 % Abs Segm Neuts (Ma n) 22.5 H (1.6-7.1) 10/cmm Band Neutrophils 17.0 % Abs Band Neuts (Ma n) 5.2 H (0.0-1.2) 10^3/c mm Lymphocytes (Manua l) 4 % Monocytes (Manual) 1.0 % Absolute Monocytes 0.3 (0.1-0.6) 10^3/c mm Metamyelocytes 4.0 % Nucleated RBCs # 0.0 /100WBC Platelet Estimate Decreased L (Normal) PT 15.90 H (10.5-13.3) SECO NDS INR 1.23 H (0.8-1.2) Sodium 136 (136-145) mmol/L Potassium 4.5 (3.5-5.1) mmol/L Chloride 93 L (98-107) mmol/L Carbon Dioxide 22 (22-29) mmol/L Anion Gap 25.5 H (5-19) BUN 65 H (8-23) mg/dL Creatinine 3.3 H (0.5-0.9) mg/dL Glucose 97 (65-115) mg/dL Calculated Osmolal ity 281 L (285-295) mOsm/k g Lactate (0.5-2.2) mmol/L Calcium 9.2 (8.5-10.5) mg/dL Total Bilirubin 1.0 (0.15-1.2) mg/dL AST 72 H (0-32) U/L ALT 52 H (0-33) U/L Alkaline Phosphata se 161 H (35-105) IU/L Total Protein 6.9 (6.6-8.7) g/dL Albumin 3.4 L (3.5-5.2) g/dL Globulin 3.5 (1.3-4.6) g/dL Urine Color (Yellow) Urine Appearance (CLEAR) Urine pH (5-7) Ur Specific Gravit y (1.005-1.030) Urine Protein (Negative) Urine Glucose (UA) (Normal) Urine Ketones (Negative) Urine Blood (Negative) Urine Nitrate (Negative) Urine Bilirubin (NEGATIVE) Urine Urobilinogen (Negative) mg/dL Ur Leukocyte Luz ase (Negative) Urine RBC (0-2) /hpf Urine WBC (0-5) /hpf Ur Squamous Epith Cells (0-5) Urine Bacteria (NONE) 08/05/19 08/05/19 Range/Units 01:02 02:50 WBC (4.0-10.0) 10^3/ uL RBC (4.1-5.3) 10^6/u L Hgb (11.5-15.3) g/dL Hct (37.0-47.0) % MCV (81-99) fL MCH (28.0-34.0) pg MCHC (30.0-36.0) g/dL RDW (12.1-15.1) % Plt Count (130-400) 10^3/c mm MPV (7.4-10.4) fL Neut % (Auto) Lymph % (Auto) [place] % (Auto) Eos % (Auto) Baso % (Auto) Neut # (Auto) Lymph # (Auto) [place] # (Auto) Eos # (Auto) Baso # (Auto) Nucleated RBC % (a uto) % Total Counted (0-100) Absolute Neutrophi ls (1.4-6.5) 10^3/c mm Segmented Neutroph ils % Abs Segm Neuts (Ma n) (1.6-7.1) 10/cmm Band Neutrophils % Abs Band Neuts (Ma n) (0.0-1.2) 10^3/c mm Lymphocytes (Manua l) % Monocytes (Manual) % Absolute Monocytes (0.1-0.6) 10^3/c mm Metamyelocytes % Nucleated RBCs # /100WBC Platelet Estimate (Normal) PT (10.5-13.3) SECO NDS INR (0.8-1.2) Sodium (136-145) mmol/L Potassium (3.5-5.1) mmol/L Chloride (98-107) mmol/L Carbon Dioxide (22-29) mmol/L Anion Gap (5-19) BUN (8-23) mg/dL Creatinine (0.5-0.9) mg/dL Glucose (65-115) mg/dL Calculated Osmolal ity (285-295) mOsm/k g Lactate 5.2 H* (0.5-2.2) mmol/L Calcium (8.5-10.5) mg/dL Total Bilirubin (0.15-1.2) mg/dL AST (0-32) U/L ALT (0-33) U/L Alkaline Phosphata se (35-105) IU/L Total Protein (6.6-8.7) g/dL Albumin (3.5-5.2) g/dL Globulin (1.3-4.6) g/dL Urine Color Dark yellow (Yellow) Urine Appearance Cloudy (CLEAR) Urine pH 5 (5-7) Ur Specific Gravit y 1.025 (1.005-1.030) Urine Protein 2+ H (Negative) Urine Glucose (UA) Norm (Normal) Urine Ketones Negative (Negative) Urine Blood 3+ H (Negative) Urine Nitrate Negative (Negative) Urine Bilirubin 2+ H (NEGATIVE) Urine Urobilinogen 1 H (Negative) mg/dL Ur Leukocyte Luz ase 2+ H (Negative) Urine RBC 10-15 H (0-2) /hpf Urine WBC >100 H (0-5) /hpf Ur Squamous Epith Cells 5-10 H (0-5) Urine Bacteria 3+ H (NONE) Imaging Data^: CXR: Attestation: I personally reviewed and interpreted this imaging study as follows: My impression: no acute abnormality CT Head: Radiologist's impression: [place] [address] CT Scan Report Signed Patient: Lorrie Mulligan Unit #: [id number] : 1950 Age/Sex: 69 / F ADM Date: 08/05/19 Loc: ICU Room/Bed: [place] [address]: Malina Allen MD Ordering Provider/Ordering MD: Hilton Pham MD Date of Service: 08/05/19 Procedure(s): CT head wo con* [id number] Accession Number(s): [id number] Report Number: [id number] PROCEDURE INFORMATION: Exam: CT Head Without Contrast Exam date and time: 08/05/2019 1:09 AM Age: 69 years old Clinical indication: Altered mental status/memory loss; Additional info: AMS TECHNIQUE: Imaging protocol: Computed tomography of the head without contrast. Radiation optimization: All CT scans at this facility use at least one of these dose optimization techniques: automated exposure control; mA and/or kV adjustment per patient size (includes targeted exams where dose is matched to clinical indication); or iterative reconstruction. COMPARISON: No relevant prior studies available. RADIATION DOSE METRICS: Total DLP (mGy-cm): 964.76 FINDINGS: Brain: No acute intracranial hemorrhage or mass effect. There is mild decreased attenuation in the periventricular white matter, likely from microvascular disease. No definite acute infarct by CT. MRI could be more sensitive/specific for detection, as clinically directed. Ventricles: Ventricle size is normal for age. Bones/joints: No definite acute skull fracture. Sinuses: Minimal mucosal thickening in the right maxillary sinus. Included paranasal sinuses otherwise appear essentially clear. Mastoid air cells: Opacification/fluid throughout the mastoid air cells bilaterally. There is also some fluid in the middle ear cavities bilaterally, probably greater on the left. Findings could represent acute or chronic mastoiditis/otitis. Please correlate clinically. Vasculature: Vascular calcifications in the internal carotid and vertebral basilar systems. CT/CT head wo con* [id number] IMPRESSION: 1. No acute intracranial hemorrhage or mass effect. 2. Changes of microvascular disease. 3. No definite acute infarct by CT, see above. 4. Paranasal and mastoid sinus findings as discussed above. 5. Other findings discussed above. EKG Data^: EKG 1: Attestation: I personally reviewed and interpreted this EKG as follows: EKG interpretation date: 08/05/19 EKG interpretation time: 00:59 Interpretation: nsr hr [address] or t wave abnormalities qrs 108 qtc 441 Critical Care Time Critical Care Time: Critical Care Time: Yes Total Critical Care Time: 35 Attestation: This case had a high probability of a clinically significant, sudden, or life threatening deterioration of this patient's condition which required my full and direct attention, intervention and personal management. Discharge Plan Discharge Patient Disposition: Admitted As Inpatient Admit Provider: Malina Allen Clinical Impression: Septic shock Acute cystitis Qualifiers: Hematuria presence: without hematuria Qualified Code(s): N30.00 - Acute cystitis without hematuria Condition: Stable Coding Level of Care Code ED Machine Oiler for Chg Fwd Exam Comprehensive
[2019-08-05] MEDS: sodium chloride 0.9% 1,000 ML 999 ML IV ×3 (01:13→03:47)
[2019-08-05 01:14] LABS: Hematocrit 32.9 % (37.0-47.0); Hemoglobin 10.5 g/dL (11.5-15.3); Mean Corpuscular HGB Conc 31.9 g/dL (30.0-36.0); Mean Corpuscular Hemoglobin 33.5 pg (28.0-34.0); Mean Corpuscular Volume 105.1 fL (81-99); Mean Platelet Volume 10.7 fL (7.4-10.4); Nucleated Red Blood Cells % 0 %; Platelet Count 108 10^3/cmm (130-400); Red Blood Count 3.13 10^6/uL (4.1-5.3); Red Cell Distribution Width 20.1 % (12.1-15.1)
[2019-08-05 01:26] LABS: INR 1.23 (0.8-1.2)
[2019-08-05 01:34] LABS: Alanine Aminotransferase 52 U/L (0-33); Albumin Level 3.4 g/dL (3.5-5.2); Alkaline Phosphatase 161 IU/L (35-105); Anion Gap 25.5 (5-19); Aspartate Amino Transferase 72 U/L (0-32); Blood Urea Nitrogen 65 mg/dL (8-23); Calcium 9.2 mg/dL (8.5-10.5); Carbon Dioxide 22 mmol/L (22-29); Chloride 93 mmol/L (98-107); Globulin 3.5 g/dL (1.3-4.6); Glucose 97 mg/dL (65-115); Osmolality Calculated 281 mOsm/kg (285-295); Potassium 4.5 mmol/L (3.5-5.1); Sodium 136 mmol/L (136-145); Total Protein 6.9 g/dL (6.6-8.7)
[2019-08-05 01:45] LABS: Slide Review Slide Review Perform
[2019-08-05 01:46] LABS: White Blood Count 30.4 10^3/uL (4.0-10.0)
[2019-08-05 01:47] LABS: Absolute Neutrophil 27.7 10^3/cmm (1.4-6.5); Absolute Segmented Neutrophil 22.5 10/cmm (1.6-7.1); Band Neutrophils Absolute 5.2 10^3/cmm (0.0-1.2); Lymphocytes 4 %; Monocytes Absolute 0.3 10^3/cmm (0.1-0.6); Platelet Estimate Decreased (Normal); Segmented Neutrophils 74 %; Total Cells Counted 100 (0-100)
[2019-08-05 01:48] LABS: Lactate (Lactic Acid level) 5.2 mmol/L (0.5-2.2)
[2019-08-05] MEDS: aztreonam 2,000 MG in sodium chloride 0.9% (plus) 100 ML 200 MG IV (02:04)
--- NOTE | 2019-08-05 02:32 | PC.NURSE ---
Pt. to CT and back via stretcher, with this RN
--- NOTE | 2019-08-05 02:58 | PM.HP ---
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 Patient is undergoing trial of chemotherapy with carboplatin/paclitaxel cycle 1 beginning 04/21/2019, she received Neupogen for neutropenia afterwards, she was started on iron supplementation for anemia, after second cycle of chemotherapy she developed severe pancytopenia requiring 2 units PRBC and platelet transfusion. She is status post 4 cycles of chemotherapy. I called [facility] to get the report. Nursing staff endorse that at baseline she is able to carry out a decent conversation, she is a however lift, has indwelling chronic Suero catheter since January 2019, has had multiple stage I ulcers around her buttocks and heel area, she mostly eats in her room independently. Today after her blood draw at the senior living white count came very high (in 30s) and nursing staff was asked to evaluate the patient and asked her if she would like to go to the hospital. At that point her confusion was noticed, patient kept repeating Help me, help me . She was afebrile, no diarrhea noted at the facility, no recent sputum production or excessive coughing. Diagnosis in the ER revealed septic shock with high lactic acid, leukocytosis, abnormal urinalysis, her mentation has been fluctuant but majorly somnolent state She has been given aztreonam and vancomycin and 3 L of normal saline, blood& urine sample obtained She had one episode of diarrhea in the ER which was black tarry in color, FOBT positive Coumadin held, she was started on Protonix drip C. difficile panel ordered CT head did not reveal any metastases At the time of my evaluation systolic blood pressure 88 mmHg, heart rate 70, saturating well on room air, she is obtunded not responding to verbal commands, she is not opening her eyes to painful stimuli as well, She is afebrile Protonix drip running at the I asked nursing staff to give stress dose steroids starting 100 mg stat and start levophed Review of Systems General: Reports: ROS unobtainable due to medical condition (Septic encephalopathy) Medications/Allergies Home Medications Medication Instructions Recorded Confirmed Last Taken Type Benadryl See Rx Instructions .ROUTE 05/14/19 05/14/19 Unknown History .COMPLEX PRN Compazine 10 mg PO Q4H PRN 05/14/19 05/14/19 Unknown History Enema 118 ml AK DAILY PRN 05/14/19 05/14/19 Unknown History acetaminophen 325 mg PO QID PRN 05/14/19 05/14/19 Unknown History bisacodyl 10 mg AK DAILY PRN 05/14/19 05/14/19 Unknown History citalopram 10 mg PO DAILY 05/14/19 05/14/19 Unknown History dexamethasone 20 mg PO Q21D 05/14/19 05/14/19 Unknown History dexamethasone 20 mg PO Q21D 05/14/19 05/14/19 Unknown History ferrous sulfate 325 mg PO DAILY 05/14/19 05/14/19 Unknown History hydrocodone-acetaminophen 1 tab PO Q4H PRN 05/14/19 05/14/19 Unknown History hydrocodone-acetaminophen 2 tab PO Q4H PRN 05/14/19 05/14/19 Unknown History levothyroxine 100 mcg PO DAILY 05/14/19 05/14/19 Unknown History lorazepam 0.5 mg PO TID PRN 05/14/19 05/14/19 Unknown History lorazepam 1 mg PO Q3H PRN 05/14/19 05/14/19 Unknown History mupirocin 1 applic TOPICAL TID 05/14/19 05/14/19 Unknown History nystatin 1 applic TOPICAL BID 05/14/19 05/14/19 Unknown History warfarin 5 mg PO BEDTIME 05/14/19 05/14/19 Unknown History Allergies Allergy/AdvReac Type Severity Reaction Status Date / Time oseltamivir [From Tamiflu] Allergy Severe ALGY-Hives Verified 05/14/19 08:54 furosemide [From Lasix] Allergy Unknown Unknown Verified 05/14/19 08:54 Penicillins Allergy Unknown Unknown Verified 05/14/19 08:54 Sulfa (Sulfonamide Allergy Unknown Unknown Verified 05/14/19 08:54 Antibiotics) PFSH Acute PFSH: Medical History DVT (deep venous thrombosis) 2007 Endometrial adenocarcinoma Stage IV with evidence of peritoneal omental metastatic disease Lymphedema Osteoporosis Port-A-Cath in place For venous access for recurrent cellulitis, Port-A-Cath placement 2013 Postmenopausal bleeding Pulmonary embolism Recurrent cellulitis Surgical History H/O hemorrhoidectomy History of bilateral oophorectomy History of hysterectomy for cancer Status post right breast lumpectomy Family History Mother CAD (coronary artery disease) Social History Smoking and tobacco status: never smoked Alcohol intake: never Substance/Drug Use: never Housing: Group Home Vitals/I&O/Wt Last Vital Signs Temp 98.9 F 08/05/19 02:45 Pulse 83 08/05/19 02:45 Resp 20 H 08/05/19 02:45 BP 81/59 08/05/19 02:45 Pulse Ox 93 08/05/19 02:45 08/04/19 08/04/19 08/05/19 14:59 22:59 06:59 Intake Total 1000 / 1000 Balance 1000 / 1000 Physical Exam Narrative: EXAM NARRATIVE: Head to toe examination Morbidly obese female in obtunded state currently saturating well on room air able to protect her airway Loss of facial and scalp hair No respond to verbal command Not opening her eyes to painful stimuli Not able to squeeze my hand on verbal command S1, S2 sinus rhythm, no signs of heart failure clinically Venous stasis dermatitis, multiple bleeding blisters, stage I pressure induced injury of buttocks and heels bilaterally No signs of cellulitis Fungal hyperemia with intertrigo around vulvar area Suero catheter draining concentrated urine Abdomen distended, visceral obesity, Hard to assess organomegaly Bilateral breath sounds diminished Patient is somnolent Urinary Catheter Management^: Suero: Cath Placed During This Visit: yes Urinary Catheter Date of Insertion: 08/05/19 Urinary Catheter Time of Insertion: 02:07 Data : 08/05/19 01:02 08/05/19 01:02 Micro: Microbiology 08/05/19 01:02 Blood Culture - Preliminary Blood SPECIMEN COLLECTED 08/05/19 01:02 Blood Culture - Preliminary Blood SPECIMEN COLLECTED A&P Assessment and plan (1) Septic shock: Status: Acute (2) Acute cystitis: Status: Acute Qualifiers: Hematuria presence: without hematuria Qualified Code(s): N30.00 - Acute cystitis without hematuria (3) Leukocytosis: Status: Acute (4) Acute kidney injury: Status: Acute (5) Septic encephalopathy: Status: Acute (6) Anemia: Status: Acute (7) Black tarry stools: Status: Acute (8) Diarrhea: Status: Acute (9) Thrombocytopenia: Status: Acute (10) Immunocompromised: Status: Acute Additional A&P Information Septic shock due to cystitis Septic shock criteria met with leukocytosis, high lactic acid, hypotension resistant to fluids Immunocompromised currently undergoing chemotherapy and on chronic dexamethasone therapy Abnormal UA Had one episode of black tarry liquid bowel movement, C. difficile panel ordered Blood and urine culture obtained Would give her vancomycin and aztreonam Received 3 L of fluid and still hypotensive, For septic shock I would use stress dose steroids, start vasopressors along with antibiotics and fluids Septic encephalopathy Patient currently is able to protect airways, saturating well on room air, she is DNR/DNI CT head did not reveal any metastatic changes Blood gas reveals normal pH Black tarry stool I would hold Coumadin, keep her on Protonix 40 IV twice daily Her hemoglobin seems to be more than her baseline which is 7-8, I believe this is due to dehydration If hemoglobin stays stable will resume Coumadin for DVT and PE Hold iron supplementation Acute kidney injury secondary to septic shock Baseline creatinine seems to be around 1, current creatinine is 3.3 Suero catheter draining concentrated urine Monitor her kidney function with daily BMPs and urine output for any signs of ATN in the future, potassium 4.5 today Thrombocytopenia and anemia Hemoglobin stable at this point Black tarry stool could be secondary to iron supplementation We will resume Coumadin if hemoglobin stays stable She required platelet and PRBC transfusion in the past due to chemotherapy-induced pancytopenia Lymphedema with bilateral venous stasis dermatitis Has open blisters without any active sign of cellulitis Would use miconazole for vulvar intertrigo Stage I multiple pressure ulcers present on admission around buttocks and heels DNR/DNI N.p.o. Patient carries guarded prognosis with underlying immunocompromised state, metastatic cancer and septic shock I have tried to call her brother Mr. Reyes, left a voicemail Attestations Medical Necessity Statement*: During stay in the hospital cross more than 2 midnights currently her prognosis is guarded because of septic shock multiorgan failure and underlying cancer Time Spent in Patient Care: (>than 50% of time spent in counselling and/or direct pt care on unit). 50mins Coding Level of Care Code Acute Front Office Manager for Chg Fwd Diagnoses Septic shock A41.9; R65.21 Acute cystitis N30.00 Hematuria presence: without hematuria Leukocytosis D72.829 Acute kidney injury N17.9 Septic encephalopathy G93.41 Anemia D64.9 Black tarry stools K92.1 Diarrhea R19.7 Thrombocytopenia D69.6 Immunocompromised D89.9
[2019-08-05 03:04] LABS: Protein Urine 2+ (Negative); Specific Gravity, Urine 1.025 (1.005-1.030); Urine Appearance Cloudy (CLEAR); Urine Color Dark Yellow (Yellow); pH Urine 5 (5-7)
[2019-08-05 03:05] LABS: Add Urine Culture? Yes; Add Urine Microscopic? YES; Bacteria Urine 3+; Bilirubin Urine 2+ (NEGATIVE); Blood Urine 3+ (Negative); Glucose Urine UA Norm (Normal); Ketones Urine Negative (Negative); Leukocyte Esterase Urine 2+ (Negative); Nitrate Urine Negative (Negative); Urobilinogen Urine 1 mg/dL (Negative); WBC Urine >100 /hpf (0-5)
[2019-08-05] MEDS: pantoprazole 40 mg SDV 80 MG IVP (03:22)
[2019-08-05] MEDS: pantoprazole 40 MG in sodium chloride 0.9% (plus) 100 ML 20 MG IV (03:47)
[2019-08-05 03:48] LABS: ABG PCO2 31.5 mmHg (35-45); ABG PH Result 7.36 (7.35-7.45); Arterial Blood Gas Hematocrit 29.9 % (37-47); Base Excess ABG -6.7 mmol/L (-2.0-2.0); Blood Gas Sample Site Brachial, right; Blood Gas Sample Type Arterial; HCO3 ABG 17.9 mmol/L (22-26); Oxygen Device NC; PO2 ABG 67.9 mmHg (80.0-100.0)
[2019-08-05] MEDS: hydrocortisone 100 mg/2 mL SDV IVP ×2 (04:32→16:37)
[2019-08-05] MEDS: vancomycin 1,000 MG in sodium chloride 0.9% 250 ML 250 MG IV (04:32)
[2019-08-05] MEDS: sodium chloride 0.9% 1,000 ML 100 ML IV ×2 (04:33→13:58)
--- NOTE | 2019-08-05 04:55 | PC.PHAR ---
Vancomycin is dosed at 1gm IVPB every 24 hours to produce a predicted trough level of 17.30 (population based pharmacokinetic analysis). A trough level has been ordered from the lab to be obtained before the fourth dose to confirm and adjust if needed.
[2019-08-05 05:46] LABS: Lactic Sepsis W/Reflex 4.2 mmol/L (0.5-2.2)
--- NOTE | 2019-08-05 05:47 | PC.NURSE ---
critical lactic acid trending down. no call to MD.
[2019-08-05 06:33] LABS: Thyroid Stimulating Hormone 1.24 uIU/mL (0.27-4.20)
[2019-08-05 06:48] LABS: Reflex Lactate Order REFLEX LACTIC ORDERD
[2019-08-05 07:34] LABS: Lactic Acid level (Lactate) 2.5 mmol/L (0.5-2.2)
[2019-08-05] MEDS: levothyroxine 100 mcg Tablet PO (08:36)
[2019-08-05] MEDS: nystatin cream 30 gm 1 APPLIC TOPICAL ×2 (08:37→18:04)
[2019-08-05 10:46] LABS: Glucose Point of Care 103 mg/dL (70-110)
--- NOTE | 2019-08-05 12:20 | PM.PN ---
Subjective Subjective: Interval history: Chart reviewed, noted significant leukocytosis, stable hemoglobin, renal impairment, currently hemodynamically stable and afebrile. Remains obtunded, crying out throughout the day. Moved closer to the nursing station. Noted to be positive for C. difficile, already on vancomycin. Prelim blood cultures positive for gram-negative rods, repeat set ordered. Stool studies otherwise negative. Medications: Reviewed: Yes Medication Review Details: Active Medications Generic Name Dose Route Start Last Admin Trade Name Freq PRN Reason Stop Dose Admin Acetaminophen 325 mg 08/05/19 04:11 Tylenol PO QID PRN Pain Hydrocortisone Sod ium Succinate 100 mg 08/05/19 16:11 Solu-Cortef Inj IVP Q12H THEODORA Aztreonam 1,000 mg / Sodium 50 mls @ 100 mls/ hr 08/05/19 13:00 Chloride IV Q12H THEODORA Protocol Sodium Chloride 1,000 mls @ 100 m ls/hr 08/05/19 04:11 08/05/19 04:33 Sodium Chloride 0.9% IV 100 mls/hr .Q10H THEODORA Administration Vancomycin HCl 1,0 00 mg/ 250 mls @ 250 mls /hr 08/06/19 01:00 Sodium Chloride IV Q24H THEODORA Protocol As Directed Norepinephrine Bit artrate 4 mg 254 mls @ 0 mls/h r 08/05/19 04:11 08/05/19 04:54 / Dextrose IV 5 mcg/min .Q0M THEODORA 19.1 mls/hr Administration Protocol Per Protocol Levothyroxine Sodi um 100 mcg 08/05/19 09:00 08/05/19 08:36 Synthroid PO 100 mcg DAILY THEODORA Administration Nystatin 1 applic 08/05/19 09:00 08/05/19 08:37 Nystatin Cream TOPICAL 1 applic BID THEODORA Administration Pantoprazole Sodiu m 40 mg 08/05/19 16:00 Protonix IVP Q12H THEODORA Sodium Phosphate 118 ml 08/05/19 04:11 Fleet Enema IA DAILY PRN Constipation oseltamivir [From Tamiflu] Allergy (Severe, Verified 05/14/19 08:54) ALGY-Hives furosemide [From Lasix] Allergy (Unknown, Verified 05/14/19 08:54) Unknown Penicillins Allergy (Unknown, Verified 05/14/19 08:54) Unknown Sulfa (Sulfonamide Antibiotics) Allergy (Unknown, Verified 05/14/19 08:54) Unknown Vitals/I&O/Wt Last Vital Signs Temp 97.3 F L 08/05/19 03:50 Pulse 80 08/05/19 10:00 Resp 17 08/05/19 10:00 BP 104/46 08/05/19 10:00 Pulse Ox 97 08/05/19 10:00 08/04/19 08/05/19 08/05/19 22:59 06:59 14:59 Intake Total 1100 / 1100 Output Total Balance 1075 / 1075 Weight last 48 hrs Weight 119.748 kg Physical Exam Const: COMMON NORMALS: no acute distress NUTRITIONAL APPEARANCE: obese morbidly obese ORIENTATION/CONSCIOUSNESS: Yes patient obtunded OTHER: -Very restless HENMT: COMMON NORMALS: normocephalic and atraumatic HEAD & SCALP: normocephalic and atraumatic MOUTH: moist mucous membranes abnormal Details: cracked Eye: COMMON NORMALS: Equal, round and reactive pupils present, EOMs intact bilaterally and conjunctivae normal CONJUNCTIVA: Yes conjunctivae normal PUPIL: Yes Equal, round and reactive pupils present Neck/C-Spine: COMMON NORMALS: full ROM GENERAL: Yes normal visual inspection and Yes trachea midline Resp: COMMON NORMALS: normal respiratory effort, No retractions, No use of accessory muscles and clear to auscultation bilaterally EFFORT & INSPECTION: Yes able to speak in complete sentences, Yes symmetric chest movement and No tachypneic AUSCULTATION: clear to auscultation bilaterally OTHER: -on 2 L NC Cardio: COMMON NORMALS: regular rhythm, S1 normal heart sound present, S2 normal heart sound present and No murmurs present (Cardio) RATE: tachycardic RHYTHM: regular rhythm HEART SOUNDS: S1 normal heart sound present and S2 normal heart sound present GI: COMMON NORMALS: Normal to inspection, nondistended, normoactive bowel sounds present and Soft to palpation INSPECTION: Yes central obesity PALPATION: Yes Soft to palpation : BLADDER/KIDNEY EXAM: Yes catheter in place Catheter type (Female): urethral Extremity: COMMON NORMALS: normal to inspection, full ROM and no clubbing, cyanosis or edema; negative for no pedal edema Neuro: COMMON NORMALS: moves all extremities, no focal motor deficits, no sensory deficits noted and gait normal Psych: COMMON NORMALS: mental status grossly normal, Normal thought process present, cooperative, normal affect and speech normal SPEECH: Yes normal speech THOUGHT PROCESS: Normal thought process present Skin: COMMON NORMALS: no jaundice, no petechiae and no mottling NARRATIVE SKIN EXAM: -noted on admission: healing lesion on dorsum of R foot, excoriation adjacent to R ankle; eschar on 3rd toe (L), superficial open wounds on L leg -excoriation on sacral area and inguinal area bilaterally HAIR: total alopecia Urinary Catheter Management^: Suero: Cath Placed During This Visit: yes Reason for Continuing Indwelling Catheter: Accurate Measurement of Urinary Output in Critically Ill Patients Urinary Catheter Date of Insertion: 08/05/19 Urinary Catheter Time of Insertion: 02:07 Data : 08/05/19 01:02 08/05/19 01:02 Micro: Microbiology 08/05/19 01:02 Blood Culture - Preliminary Blood SPECIMEN COLLECTED 08/05/19 01:02 Blood Culture - Preliminary Blood SPECIMEN COLLECTED A&P Assessment and plan (1) Septic shock: -secondary to UTI with underlying immunocompromise due to hx of endometrial cancer -associated altered mental status, noted lactic acidosis, hypotension, leukocytosis -on stress dose steroids -IVF hydration, pressor support as needed to maintain MAP > 65 -continue broad spectrum IV antibiotics (Vanc, Aztreonam) -blood cx: 3/4 bottles positive for GNRs; repeat set ordered -f/u urine cx -VSS; continue to monitor closely -supplemental oxygen as needed -C.difficile +, stool studies otherwise negative Status: Acute (2) Gram-negative bacteremia: -as noted above Status: Acute (3) C. difficile colitis: -as noted above -add Flagyl given septic shock -contact isolation precautions Status: Acute (4) Acute cystitis: -UA indicative of infection -on IV abx as noted above -f/u urine cx -has chronic indwelling Suero catheter; change if not already done Status: Acute Qualifiers: Hematuria presence: without hematuria Qualified Code(s): N30.00 - Acute cystitis without hematuria (5) Septic encephalopathy: -as noted above -fall, aspiration precautions -CT head: unremarkable Status: Acute (6) Thrombocytopenia: -seems to be an intermittent issue; infection playing a role here -continue to monitor platelet count, monitor for bleeding -hold antiplatelets Status: Chronic (7) Acute kidney injury: -likely secondary to infection -monitor urine output; has Suero catheter -monitor renal function, renally dose meds, avoid nephotoxins Status: Acute (8) Anemia: -has alternated between microcytic and macrocytic anemia -baseline Hg is around 8-9 -has underlying endometrial cancer Status: Chronic Qualifiers: Anemia type: unspecified type Qualified Code(s): D64.9 - Anemia, unspecified (9) Decubitus ulcers: -noted to be present on admission, on sacral area and bilateral heels -frequent repositioning, wound care as needed, heel boots for offloading Status: Chronic Qualifiers: Pressure injury location: unspecified location Pressure injury stage: stage 1 Qualified Code(s): L89.91 - Pressure ulcer of unspecified site, stage 1 (10) Pulmonary embolism: -on AC with Coumadin, on hold due to anemia, thrombocytopenia, FOBT + Status: Chronic Qualifiers: Acute cor pulmonale presence: unspecified Chronicity: chronic Pulmonary embolism type: unspecified Qualified Code(s): I27.82 - Chronic pulmonary embolism (11) DVT (deep venous thrombosis): Status: Chronic Qualifiers: Affected thrombotic vein of extremity: unspecified vein of extremity Chronicity: chronic DVT location: lower extremity Laterality: unspecified laterality Qualified Code(s): I82.509 - Chronic embolism and thrombosis of unspecified deep veins of unspecified lower extremity (12) Endometrial adenocarcinoma: -History of endometrial adenocarcinoma with evidence of peritoneal and omental metastatic disease -Status post palliative hysterectomy, bilateral salpingo-oophorectomy and omentectomy in 01/2019 -follows up with Dr. Porras -on chemotherapy with Carboplatin/Paclitaxel Status: Chronic Additional A&P Information -Chronic back pain -Chronic lymphedema -Osteoporosis -Hypothyroidism -noted mention of possible large R pleural effusion; repeat CXR in 24-48 hrs -NPO due to somnolence -GI ppx with PPI -DVT ppx with SCDs, no AC due to anemia, thrombocytopenia -Dispo: [facility] -Code status: DNR/DNI -ICU care due to septic shock Attestations Medical Necessity Statement*: Patient requires hospitalization for continued management of septic shock secondary to cystitis requiring broad-spectrum IV antibiotics, close monitoring of her hemodynamic status. Time Spent in Patient Care: Greater than 35 minutes (>than 50% of time spent in counselling and/or direct pt care on unit). Coding Level of Care Code Acute Light Rail Operator for Chg Fwd Exam Comprehensive Diagnoses Septic shock A41.9; R65.21 Gram-negative bacteremia R78.81 C. difficile colitis A04.72 Acute cystitis N30.00 Hematuria presence: without hematuria Septic encephalopathy G93.41 Thrombocytopenia D69.6 Acute kidney injury N17.9 Anemia D64.9 Anemia type: unspecified type Decubitus ulcers L89.91 Pressure injury location: unspecified location Pressure injury stage: stage 1 Pulmonary embolism I27.82 Acute cor pulmonale presence: unspecified Chronicity: chronic Pulmonary embolism type: unspecified DVT (deep venous thrombosis) I82.509 Affected thrombotic vein of extremity: unspecified vein of extremity Chronicity: chronic DVT location: lower extremity Laterality: unspecified laterality Endometrial adenocarcinoma C54.1
[2019-08-05] MEDS: aztreonam 1,000 MG in sodium chloride 0.9% (plus) 50 ML 100 MG IV (13:53)
[2019-08-05] MEDS: pantoprazole 40 mg SDV IVP (16:24)
[2019-08-05] MEDS: LORazepam 2 mg/mL INJ 1 mL IVP (18:15)
[2019-08-05] MEDS: metroNIDAZOLE IV 500 MG/100 ML PREMIX 100 MG IV (21:45)
[2019-08-06] VITALS (124 sets, daily range): BP systolic 82–152; BP diastolic 43–82; PULSE 60–96; RESP 10–33; TEMP 36.9–37.2; O2SAT 86–100
[2019-08-06] MEDS: aztreonam 1,000 MG in sodium chloride 0.9% (plus) 50 ML 100 MG IV ×2 (01:39→12:47)
[2019-08-06] MEDS: sodium chloride 0.9% 1,000 ML 100 ML IV (01:40)
[2019-08-06] MEDS: vancomycin 1,000 MG in sodium chloride 0.9% 250 ML 250 MG IV (01:41)
[2019-08-06] MEDS: hydrocortisone 100 mg/2 mL SDV IVP ×2 (04:24→16:07)
[2019-08-06] MEDS: metroNIDAZOLE IV 500 MG/100 ML PREMIX 100 MG IV ×3 (04:24→20:19)
[2019-08-06] MEDS: pantoprazole 40 mg SDV IVP ×2 (04:24→16:07)
[2019-08-06 04:54] LABS: Basophils # 0.1 10^3/uL (0.0-0.1); Basophils % 0.5 %; Hematocrit 30.1 % (37.0-47.0); Hemoglobin 9.3 g/dL (11.5-15.3); Lymphocytes # 0.6 10^3/uL (0.8-4.8); Lymphocytes % 2.5 %; Mean Corpuscular HGB Conc 30.9 g/dL (30.0-36.0); Mean Corpuscular Hemoglobin 32.6 pg (28.0-34.0); Mean Corpuscular Volume 105.6 fL (81-99); Monocytes # 1.5 10^3/uL (0.2-0.9); Monocytes % 6.1 %; Neutrophils # 21.8 10^3/uL (1.8-7.7); Neutrophils % 90.2 %; Nucleated Red Blood Cells % 0 %; Platelet Count 57 10^3/cmm (130-400); Red Blood Count 2.85 10^6/uL (4.1-5.3); Red Cell Distribution Width 19.9 % (12.1-15.1); White Blood Count 24.2 10^3/uL (4.0-10.0)
[2019-08-06 05:08] LABS: INR 1.24 (0.8-1.2)
[2019-08-06 05:23] LABS: Anion Gap 22.5 (5-19); Blood Urea Nitrogen 74 mg/dL (8-23); Calcium 7.8 mg/dL (8.5-10.5); Carbon Dioxide 18 mmol/L (22-29); Chloride 100 mmol/L (98-107); Glucose 114 mg/dL (65-115); Osmolality Calculated 284 mOsm/kg (285-295); Potassium 3.5 mmol/L (3.5-5.1); Sodium 137 mmol/L (136-145)
--- NOTE | 2019-08-06 06:00 | XRR_ITS ---
PROCEDURE INFORMATION: Exam: XR Chest, 1 View Exam date and time: 08/06/2019 4:51 AM Age: 69 years old Clinical indication: Other: AMS; Additional info: Progression of R pleural effusion TECHNIQUE: Imaging protocol: XR of the chest Views: 1 view. COMPARISON: CR XR chest 1V portable [id number] 08/05/2019 1:09 AM FINDINGS: Tubes, catheters and devices: Chest port via the left subclavian approach with the tip overlying the superior vena cava. Lungs: Subtle patchy airspace disease left upper lobe. Follow-up. Pleural space: Unremarkable. No pleural effusion. No pneumothorax. Heart/Mediastinum: Unremarkable. No cardiomegaly. Diaphragm: Severe elevation right hemidiaphragm. Mild adjacent atelectasis. Bones/joints: Unremarkable. XR/XR chest 1V portable [id number] IMPRESSION: 1. Severe elevation right hemidiaphragm. Mild adjacent atelectasis. 2. Subtle patchy airspace disease left upper lobe. Follow-up. Lungs are otherwise well aerated.
[2019-08-06] MEDS: morphine 4 mg/mL SDV 1 mL 2 MG IVP ×2 (06:17→19:16)
[2019-08-06] MEDS: nystatin cream 30 gm 1 APPLIC TOPICAL ×2 (10:13→18:21)
--- NOTE | 2019-08-06 10:45 | PM.PN ---
Subjective Subjective: Interval history: Asleep this AM, hemodynamically stable, had 350 mL urine output overnight, received dose of Morphine earlier this AM and is resting quietly, no ativan required/given. Has + fluid balance of 7 L so will discontinue IVF hydration. Decreased leukocytosis, stable hemoglobin, decreased platelet count, and improved Cr. Remains on pressor support, on Levophed at 6 mcg/min. Medications: Reviewed: Yes Medication Review Details: Active Medications Generic Name Dose Route Start Last Admin Trade Name Freq PRN Reason Stop Dose Admin Acetaminophen 325 mg 08/05/19 04:11 Tylenol PO QID PRN Pain Hydrocortisone Sod ium Succinate 100 mg 08/05/19 16:11 08/06/19 04:24 Solu-Cortef Inj IVP 100 mg Q12H THEODORA Administration Aztreonam 1,000 mg / Sodium 50 mls @ 100 mls/ hr 08/05/19 13:00 08/06/19 02:09 Chloride IV Infused Q12H THEODORA Infusion Protocol Vancomycin HCl 1,0 00 mg/ 250 mls @ 250 mls /hr 08/06/19 01:00 08/06/19 07:28 Sodium Chloride IV Infused Q24H THEODORA Infusion Protocol As Directed Norepinephrine Bit artrate 4 mg 254 mls @ 0 mls/h r 08/05/19 04:11 08/05/19 18:02 / Dextrose IV 6 mcg/min .Q0M THEODORA 22.9 mls/hr Titration Protocol Per Protocol Metronidazole 500 mg in 100 mls @ 100 mls/hr 08/05/19 21:15 08/06/19 07:28 Flagyl Iv IV Infused Q8H THEODORA Infusion Protocol Levothyroxine Sodi um 100 mcg 08/05/19 09:00 08/06/19 10:12 Synthroid PO Not Given DAILY THEODORA Lorazepam 1 mg 08/05/19 17:06 Ativan IVP Q8H PRN Anxiety and agita tion Nystatin 1 applic 08/05/19 09:00 08/06/19 10:13 Nystatin Cream TOPICAL 1 applic BID THEODORA Administration Pantoprazole Sodiu m 40 mg 08/05/19 16:00 08/06/19 04:24 Protonix IVP 40 mg Q12H THEODORA Administration Sodium Phosphate 118 ml 08/05/19 04:11 Fleet Enema [place] DAILY PRN Constipation oseltamivir [From Tamiflu] Allergy (Severe, Verified 05/14/19 08:54) ALGY-Hives furosemide [From Lasix] Allergy (Unknown, Verified 05/14/19 08:54) Unknown Penicillins Allergy (Unknown, Verified 05/14/19 08:54) Unknown Sulfa (Sulfonamide Antibiotics) Allergy (Unknown, Verified 05/14/19 08:54) Unknown Vitals/I&O/Wt Last Vital Signs Temp 98.9 F 08/06/19 08:00 Pulse 64 08/06/19 10:30 Resp 16 08/06/19 10:30 BP 109/66 08/06/19 10:30 Pulse Ox 98 08/06/19 10:30 08/05/19 08/06/19 08/06/19 22:59 06:59 14:59 Intake Total 4576.98 / 5742.457 1050 / 6792.457 350 / 350 Output Total 375 / 375 350 / 725 200 / 200 Balance 4201.98 / 5367.457 700 / 6067.457 150 / 150 Weight last 48 hrs Weight 119.748 kg Physical Exam Const: COMMON NORMALS: no acute distress GENERAL APPEARANCE: cooperative and comfortable NUTRITIONAL APPEARANCE: obese morbidly obese ORIENTATION/CONSCIOUSNESS: Yes patient obtunded OTHER: -resting quietly in bed HENMT: COMMON NORMALS: normocephalic and atraumatic HEAD & SCALP: normocephalic and atraumatic MOUTH: moist mucous membranes abnormal Details: cracked Eye: COMMON NORMALS: Equal, round and reactive pupils present, EOMs intact bilaterally and conjunctivae normal CONJUNCTIVA: Yes conjunctivae normal PUPIL: Yes Equal, round and reactive pupils present Neck/C-Spine: COMMON NORMALS: full ROM GENERAL: Yes normal visual inspection and Yes trachea midline Resp: COMMON NORMALS: normal respiratory effort, No retractions, No use of accessory muscles and clear to auscultation bilaterally EFFORT & INSPECTION: Yes able to speak in complete sentences, Yes symmetric chest movement and No tachypneic AUSCULTATION: clear to auscultation bilaterally OTHER: -on 2 L NC Cardio: COMMON NORMALS: regular rhythm, S1 normal heart sound present, S2 normal heart sound present and No murmurs present (Cardio) RATE: tachycardic RHYTHM: regular rhythm HEART SOUNDS: S1 normal heart sound present and S2 normal heart sound present GI: COMMON NORMALS: Normal to inspection, nondistended, normoactive bowel sounds present and Soft to palpation INSPECTION: Yes central obesity PALPATION: Yes Soft to palpation : BLADDER/KIDNEY EXAM: Yes catheter in place Catheter type (Female): urethral Extremity: COMMON NORMALS: normal to inspection, full ROM and no clubbing, cyanosis or edema; negative for no pedal edema Neuro: COMMON NORMALS: moves all extremities, no focal motor deficits, no sensory deficits noted and gait normal Psych: COMMON NORMALS: mental status grossly normal, Normal thought process present, cooperative, normal affect and speech normal SPEECH: Yes normal speech THOUGHT PROCESS: Normal thought process present Skin: COMMON NORMALS: no jaundice, no petechiae and no mottling NARRATIVE SKIN EXAM: -noted on admission: healing lesion on dorsum of R foot, excoriation adjacent to R ankle; eschar on 3rd toe (L), superficial open wounds on L leg -excoriation on sacral area and inguinal area bilaterally HAIR: total alopecia Urinary Catheter Management^: Suero: Cath Placed During This Visit: yes Reason for Continuing Indwelling Catheter: Accurate Measurement of Urinary Output in Critically Ill Patients Urinary Catheter Date of Insertion: 08/05/19 Urinary Catheter Time of Insertion: 02:07 Data : 08/06/19 04:15 08/06/19 04:15 Micro: Microbiology 08/05/19 02:50 Urine Culture - Preliminary Urine,Clean Catch Gram Negative Rods 08/05/19 01:02 Blood Culture - Preliminary Blood Gram Negative Rods 08/05/19 01:02 Blood Culture - Preliminary Blood Gram Negative Rods 08/05/19 10:15 Enteric Pathogens (PCR) - Final Stool 08/05/19 10:15 C.difficile Toxin B Gene (PCR) - Final Stool A&P Assessment and plan (1) Septic shock: -secondary to UTI with underlying immunocompromise due to hx of endometrial cancer -associated altered mental status, noted lactic acidosis, hypotension, leukocytosis -on stress dose steroids -pressor support as needed to maintain MAP > 65; d/c IVF to prevent fluid overload; noted + fluid balance of 7 L -continue broad spectrum IV antibiotics (Vanc, Aztreonam) -blood cx: 3/4 bottles positive for GNRs; repeat set ordered -urine cx: GNRs, pending ID & sensitivity -VSS; continue to monitor closely -supplemental oxygen as needed -C.difficile +, stool studies otherwise negative -decreasing leukocytosis; continue to trend WBC Status: Acute (2) Gram-negative bacteremia: -as noted above Status: Acute (3) C. difficile colitis: -as noted above -on Flagyl (in addition to Vanc, Aztreonam) given septic shock -contact isolation precautions Status: Acute (4) Acute cystitis: -UA indicative of infection -on IV abx as noted above -urine cx: GNRs, pending ID & sensitivity -has chronic indwelling Suero catheter; changed on admission Status: Acute Qualifiers: Hematuria presence: without hematuria Qualified Code(s): N30.00 - Acute cystitis without hematuria (5) Septic encephalopathy: -as noted above -fall, aspiration precautions -CT head: unremarkable Status: Acute (6) Thrombocytopenia: -seems to be an intermittent issue; infection playing a role here -continue to monitor platelet count, monitor for bleeding -hold antiplatelets Status: Chronic (7) Acute kidney injury: -likely secondary to infection -continue to monitor urine output; has Suero catheter -continue to monitor renal function, renally dose meds, avoid nephotoxins Status: Acute (8) Anemia: -has alternated between microcytic and macrocytic anemia -baseline Hg is around 8-9 -has underlying endometrial cancer Status: Chronic Qualifiers: Anemia type: unspecified type Qualified Code(s): D64.9 - Anemia, unspecified (9) Decubitus ulcers: -noted to be present on admission, on sacral area and bilateral heels -frequent repositioning, wound care as needed, heel boots for offloading Status: Chronic Qualifiers: Pressure injury location: unspecified location Pressure injury stage: stage 1 Qualified Code(s): L89.91 - Pressure ulcer of unspecified site, stage 1 (10) Pulmonary embolism: -on AC with Coumadin, on hold due to anemia, thrombocytopenia, FOBT + Status: Chronic Qualifiers: Pulmonary embolism type: unspecified Chronicity: chronic Acute cor pulmonale presence: unspecified Qualified Code(s): I27.82 - Chronic pulmonary embolism (11) DVT (deep venous thrombosis): Status: Chronic Qualifiers: DVT location: lower extremity Affected thrombotic vein of extremity: unspecified vein of extremity Chronicity: chronic Laterality: unspecified laterality Qualified Code(s): I82.509 - Chronic embolism and thrombosis of unspecified deep veins of unspecified lower extremity (12) Endometrial adenocarcinoma: -History of endometrial adenocarcinoma with evidence of peritoneal and omental metastatic disease -Status post palliative hysterectomy, bilateral salpingo-oophorectomy and omentectomy in 01/2019 -follows up with Dr. Porras -on chemotherapy with Carboplatin/Paclitaxel Status: Chronic Additional A&P Information -Chronic back pain -Chronic lymphedema -Osteoporosis -Hypothyroidism -noted mention of possible large R pleural effusion; repeat CXR today shows elevation of R hemidiaphragm, atelectasis, and JOHNSON patchy airspace disease -NPO due to somnolence -GI ppx with PPI -DVT ppx with SCDs, no AC due to anemia, thrombocytopenia -Dispo: [facility], [place] -Code status: DNR/DNI -ICU care due to septic shock, pressor support Attestations Medical Necessity Statement*: Patient requires hospitalization for continued management of acute cystitis, C.difficile colitis, on broad spectrum IV antibiotics, pressor support. Time Spent in Patient Care: 16 - 35 minutes (>than 50% of time spent in counselling and/or direct pt care on unit). Coding Level of Care Code Acute Polishing Wheel Repairer for g Fwd Diagnoses Septic shock A41.9; R65.21 Gram-negative bacteremia R78.81 C. difficile colitis A04.72 Acute cystitis N30.00 Hematuria presence: without hematuria Septic encephalopathy G93.41 Thrombocytopenia D69.6 Acute kidney injury N17.9 Anemia D64.9 Anemia type: unspecified type Decubitus ulcers L89.91 Pressure injury location: unspecified location Pressure injury stage: stage 1 Pulmonary embolism I27.82 Pulmonary embolism type: unspecified Chronicity: chronic Acute cor pulmonale presence: unspecified DVT (deep venous thrombosis) I82.509 DVT location: lower extremity Affected thrombotic vein of extremity: unspecified vein of extremity Chronicity: chronic Laterality: unspecified laterality Endometrial adenocarcinoma C54.1
--- NOTE | 2019-08-06 19:14 | PC.NURSE ---
Shift report taken from RAPHAEL Gomez. When nurse introduced herself to pt and stated an assessment was going to be done, pt began saying It hurts real bad, I hurt, please help me. Nurse Asked what hurt. Pt responded I hurt, God, please help, I hurt as she held her stomach.
[2019-08-06] MEDS: HYDROmorphone 1 mg/mL INJ 1 mL IVP (23:08)
[2019-08-07] VITALS (54 sets, daily range): BP systolic 82–142; BP diastolic 45–84; PULSE 56–86; RESP 4–23; TEMP 35–35.9; O2SAT 89–100
[2019-08-07] MEDS: vancomycin 1,000 MG in sodium chloride 0.9% 250 ML 250 MG IV (00:49)
[2019-08-07] MEDS: aztreonam 1,000 MG in sodium chloride 0.9% (plus) 50 ML 100 MG IV ×2 (01:53→12:15)
[2019-08-07] MEDS: HYDROmorphone 1 mg/mL INJ 1 mL 2 MG IVP ×5 (03:36→23:33)
[2019-08-07] MEDS: metroNIDAZOLE IV 500 MG/100 ML PREMIX 100 MG IV ×3 (04:42→21:06)
[2019-08-07] MEDS: pantoprazole 40 mg SDV IVP ×2 (04:42→14:12)
[2019-08-07] MEDS: hydrocortisone 100 mg/2 mL SDV IVP ×2 (05:20→15:27)
[2019-08-07 05:29] LABS: Basophils # 0.1 10^3/uL (0.0-0.1); Basophils % 0.4 %; Hematocrit 30.9 % (37.0-47.0); Hemoglobin 9.5 g/dL (11.5-15.3); Lymphocytes # 0.5 10^3/uL (0.8-4.8); Lymphocytes % 3.5 %; Mean Corpuscular HGB Conc 30.7 g/dL (30.0-36.0); Mean Corpuscular Hemoglobin 32.6 pg (28.0-34.0); Mean Corpuscular Volume 106.2 fL (81-99); Mean Platelet Volume 11.4 fL (7.4-10.4); Monocytes # 0.7 10^3/uL (0.2-0.9); Monocytes % 4.6 %; Neutrophils # 13.3 10^3/uL (1.8-7.7); Neutrophils % 90.3 %; Nucleated Red Blood Cells % 0 %; Platelet Count 42 10^3/cmm (130-400); Red Blood Count 2.91 10^6/uL (4.1-5.3); Red Cell Distribution Width 19.8 % (12.1-15.1); White Blood Count 14.7 10^3/uL (4.0-10.0)
[2019-08-07 05:49] LABS: Alanine Aminotransferase 33 U/L (0-33); Albumin Level 2.6 g/dL (3.5-5.2); Alkaline Phosphatase 144 IU/L (35-105); Anion Gap 18.4 (5-19); Aspartate Amino Transferase 25 U/L (0-32); Blood Urea Nitrogen 78 mg/dL (8-23); Calcium 8.2 mg/dL (8.5-10.5); Carbon Dioxide 21 mmol/L (22-29); Chloride 105 mmol/L (98-107); Globulin 3.7 g/dL (1.3-4.6); Glucose 113 mg/dL (65-115); Osmolality Calculated 293 mOsm/kg (285-295); Potassium 3.4 mmol/L (3.5-5.1); Sodium 141 mmol/L (136-145); Total Bilirubin 0.4 mg/dL (0.15-1.2); Total Protein 6.3 g/dL (6.6-8.7)
[2019-08-07 06:07] LABS: INR 1.22 (0.8-1.2)
--- NOTE | 2019-08-07 08:10 | PM.PN ---
Subjective Subjective: Interval history: Per overnight nursing staff patient was quite uncomfortable, often crying out in pain throughout the night, did not get significant relief with morphine so was given Dilaudid and is resting quietly. Noted darkening of her urine and possibly some hematuria as well. Overall had a urine output of 725 mL. Due to hypotension required resumption of Levophed that is currently running at 2 mcg/min. Afebrile, decreased leukocytosis, on 5 L nasal cannula, improved creatinine. No bowel movements overnight. Medications: Reviewed: Yes Medication Review Details: Active Medications Generic Name Dose Route Start Last Admin Trade Name Freq PRN Reason Stop Dose Admin Acetaminophen 325 mg 08/05/19 04:11 Tylenol PO QID PRN Pain Hydrocortisone Sod ium Succinate 100 mg 08/05/19 16:11 08/07/19 05:20 Solu-Cortef Inj IVP 100 mg Q12H THEODORA Administration Hydromorphone HCl 2 mg 08/06/19 23:11 08/07/19 03:36 Dilaudid Inj IVP 2 mg Q4H PRN Administration SEVERE PAIN Aztreonam 1,000 mg / Sodium 50 mls @ 100 mls/ hr 08/05/19 13:00 08/07/19 02:20 Chloride IV Infused Q12H THEOD[facility]A Infusion Protocol Vancomycin HCl 1,0 00 mg/ 250 mls @ 250 mls /hr 08/06/19 01:00 08/07/19 01:54 Sodium Chloride IV Infused Q24H THEODORA Infusion Protocol As Directed Norepinephrine Bit artrate 4 mg 254 mls @ 0 mls/h r 08/05/19 04:11 08/07/19 05:04 / Dextrose IV 0.52 mcg/min .Q0M THEODORA 2 mls/hr Titration Protocol Per Protocol Metronidazole 500 mg in 100 mls @ 100 mls/hr 08/05/19 21:15 08/07/19 05:53 Flagyl Iv IV Infused Q8H THEODORA Infusion Protocol Levothyroxine Sodi um 100 mcg 08/05/19 09:00 08/06/19 10:12 Synthroid PO Not Given DAILY THEODORA Lorazepam 1 mg 08/05/19 17:06 Ativan IVP Q8H PRN Anxiety and agita tion Morphine Sulfate 2 mg 08/06/19 10:46 08/06/19 19:16 Morphine IVP 2 mg Q4H PRN Administration SEVERE PAIN Nystatin 1 applic 08/05/19 09:00 08/06/19 18:21 Nystatin Cream TOPICAL 1 applic BID THEODORA Administration Pantoprazole Sodiu m 40 mg 08/05/19 16:00 08/07/19 04:42 Protonix IVP 40 mg Q12H THEODORA Administration Sodium Phosphate 118 ml 08/05/19 04:11 Fleet Enema [place] DAILY PRN Constipation oseltamivir [From Tamiflu] Allergy (Severe, Verified 05/14/19 08:54) ALGY-Hives furosemide [From Lasix] Allergy (Unknown, Verified 05/14/19 08:54) Unknown Penicillins Allergy (Unknown, Verified 05/14/19 08:54) Unknown Sulfa (Sulfonamide Antibiotics) Allergy (Unknown, Verified 05/14/19 08:54) Unknown Vitals/I&O/Wt Last Vital Signs Temp 96.6 F L 08/07/19 06:00 Pulse 65 08/07/19 06:00 Resp 12 08/07/19 06:00 BP 132/84 08/07/19 06:00 Pulse Ox 97 08/07/19 06:00 08/06/19 08/07/19 08/07/19 22:59 06:59 14:59 Intake Total 1109.027 / 4145.147 9202.200 / 4281.477 Output Total 450 / 800 525 / 1325 Balance 659.027 / 981.831 1128.200 / 2956.477 Physical Exam Const: COMMON NORMALS: no acute distress GENERAL APPEARANCE: cooperative and comfortable NUTRITIONAL APPEARANCE: obese morbidly obese ORIENTATION/CONSCIOUSNESS: Yes patient obtunded OTHER: -resting quietly in bed HENMT: COMMON NORMALS: normocephalic and atraumatic HEAD & SCALP: normocephalic and atraumatic MOUTH: moist mucous membranes abnormal Details: cracked Eye: COMMON NORMALS: Equal, round and reactive pupils present, EOMs intact bilaterally and conjunctivae normal CONJUNCTIVA: Yes conjunctivae normal PUPIL: Yes Equal, round and reactive pupils present Neck/C-Spine: COMMON NORMALS: full ROM GENERAL: Yes normal visual inspection and Yes trachea midline Resp: COMMON NORMALS: normal respiratory effort, No retractions, No use of accessory muscles and clear to auscultation bilaterally EFFORT & INSPECTION: Yes able to speak in complete sentences, Yes symmetric chest movement and No tachypneic AUSCULTATION: clear to auscultation bilaterally OTHER: -on 5 L NC Cardio: COMMON NORMALS: regular rhythm, S1 normal heart sound present, S2 normal heart sound present and No murmurs present (Cardio) RATE: tachycardic RHYTHM: regular rhythm HEART SOUNDS: S1 normal heart sound present and S2 normal heart sound present GI: COMMON NORMALS: Normal to inspection, nondistended, normoactive bowel sounds present and Soft to palpation INSPECTION: Yes central obesity PALPATION: Yes Soft to palpation : BLADDER/KIDNEY EXAM: Yes catheter in place Catheter type (Female): urethral Extremity: COMMON NORMALS: normal to inspection, full ROM and no clubbing, cyanosis or edema; negative for no pedal edema Neuro: COMMON NORMALS: moves all extremities, no focal motor deficits, no sensory deficits noted and gait normal Psych: COMMON NORMALS: mental status grossly normal, Normal thought process present, cooperative, normal affect and speech normal SPEECH: Yes normal speech THOUGHT PROCESS: Normal thought process present Skin: COMMON NORMALS: no jaundice, no petechiae and no mottling NARRATIVE SKIN EXAM: -noted on admission: healing lesion on dorsum of R foot, excoriation adjacent to R ankle; eschar on 3rd toe (L), superficial open wounds on L leg -excoriation on sacral area and inguinal area bilaterally HAIR: total alopecia Urinary Catheter Management^: Suero: Cath Placed During This Visit: yes Reason for Continuing Indwelling Catheter: Accurate Measurement of Urinary Output in Critically Ill Patients Urinary Catheter Date of Insertion: 08/05/19 Urinary Catheter Time of Insertion: 02:07 Data : 08/07/19 04:20 08/07/19 04:20 Micro: Microbiology 08/06/19 11:27 Blood Culture - Preliminary Blood SPECIMEN COLLECTED 08/06/19 11:23 Blood Culture - Preliminary Blood SPECIMEN COLLECTED 08/05/19 02:50 Urine Culture - Preliminary Urine,Clean Catch Gram Negative Rods A&P Assessment and plan (1) Septic shock: -secondary to UTI with underlying immunocompromise due to hx of endometrial cancer -associated altered mental status, noted lactic acidosis, hypotension, leukocytosis -on stress dose steroids -pressor support as needed to maintain MAP > 65; d/c IVF to prevent fluid overload; noted + fluid balance of 10 L -continue broad spectrum IV antibiotics (Vanc, Aztreonam) -blood cx: 3/4 bottles positive for GNRs; repeat set ordered -urine cx: GNRs, pending ID & sensitivity -VSS; continue to monitor closely -supplemental oxygen as needed -C.difficile +, stool studies otherwise negative -decreasing leukocytosis; continue to trend WBC Status: Acute (2) Gram-negative bacteremia: -as noted above Status: Acute (3) C. difficile colitis: -as noted above -on Flagyl (in addition to Vanc, Aztreonam) given septic shock -contact isolation precautions Status: Acute (4) Acute cystitis: -UA indicative of infection -on IV abx as noted above -urine cx: GNRs, pending ID & sensitivity -has chronic indwelling Suero catheter; changed on admission Status: Acute Qualifiers: Hematuria presence: without hematuria Qualified Code(s): N30.00 - Acute cystitis without hematuria (5) Septic encephalopathy: -as noted above -fall, aspiration precautions -CT head: unremarkable Status: Acute (6) Thrombocytopenia: -seems to be an intermittent issue; infection playing a role here -continue to monitor platelet count, monitor for bleeding -hold antiplatelets Status: Chronic (7) Acute kidney injury: -likely secondary to infection -continue to monitor urine output; has Suero catheter -continue to monitor renal function, renally dose meds, avoid nephotoxins Status: Acute (8) Anemia: -has alternated between microcytic and macrocytic anemia -baseline Hg is around 8-9 -has underlying endometrial cancer Status: Chronic Qualifiers: Anemia type: unspecified type Qualified Code(s): D64.9 - Anemia, unspecified (9) Decubitus ulcers: -noted to be present on admission, on sacral area and bilateral heels -frequent repositioning, wound care as needed, heel boots for offloading Status: Chronic Qualifiers: Pressure injury location: unspecified location Pressure injury stage: stage 1 Qualified Code(s): L89.91 - Pressure ulcer of unspecified site, stage 1 (10) Pulmonary embolism: -on AC with Coumadin, on hold due to anemia, thrombocytopenia, FOBT + Status: Chronic Qualifiers: Pulmonary embolism type: unspecified Chronicity: chronic Acute cor pulmonale presence: unspecified Qualified Code(s): I27.82 - Chronic pulmonary embolism (11) DVT (deep venous thrombosis): Status: Chronic Qualifiers: DVT location: lower extremity Affected thrombotic vein of extremity: unspecified vein of extremity Chronicity: chronic Laterality: unspecified laterality Qualified Code(s): I82.509 - Chronic embolism and thrombosis of unspecified deep veins of unspecified lower extremity (12) Endometrial adenocarcinoma: -History of endometrial adenocarcinoma with evidence of peritoneal and omental metastatic disease -Status post palliative hysterectomy, bilateral salpingo-oophorectomy and omentectomy in 01/2019 -follows up with Dr. Porras -on chemotherapy with Carboplatin/Paclitaxel Status: Chronic Additional A&P Information -Chronic back pain -Chronic lymphedema -Osteoporosis -Hypothyroidism -noted mention of possible large R pleural effusion; repeat CXR today shows elevation of R hemidiaphragm, atelectasis, and JOHNSON patchy airspace disease -NPO due to somnolence -GI ppx with PPI -DVT ppx with SCDs, no AC due to anemia, thrombocytopenia -Dispo: [facility] -Code status: DNR/DNI; will need to follow up on goals of care discussion with patient's family based on her lack of improvement with continued antibiotic treatment and improving labs -ICU care due to septic shock, pressor support Attestations Medical Necessity Statement*: Patient requires hospitalization for continued IV antibiotic treatment secondary to UTI and C.difficile colitis with continued encephalopathy. Time Spent in Patient Care: 16 - 35 minutes (>than 50% of time spent in counselling and/or direct pt care on unit). Coding Level of Care Code Acute Caramel Cutter Hand for Chg Fwd Diagnoses Septic shock A41.9; R65.21 Gram-negative bacteremia R78.81 C. difficile colitis A04.72 Acute cystitis N30.00 Hematuria presence: without hematuria Septic encephalopathy G93.41 Thrombocytopenia D69.6 Acute kidney injury N17.9 Anemia D64.9 Anemia type: unspecified type Decubitus ulcers L89.91 Pressure injury location: unspecified location Pressure injury stage: stage 1 Pulmonary embolism I27.82 Pulmonary embolism type: unspecified Chronicity: chronic Acute cor pulmonale presence: unspecified DVT (deep venous thrombosis) I82.509 DVT location: lower extremity Affected thrombotic vein of extremity: unspecified vein of extremity Chronicity: chronic Laterality: unspecified laterality Endometrial adenocarcinoma C54.1
[2019-08-07] MEDS: nystatin cream 30 gm 1 APPLIC TOPICAL ×2 (09:08→17:03)
[2019-08-07] MEDS: levothyroxine 100 mcg Tablet PO (09:08)
--- NOTE | 2019-08-07 09:53 | PC.NURSE ---
lab notification of critical vre and ecoli in urine. patient is on contact and droplet precautions already. isolation continues.
--- NOTE | 2019-08-07 11:48 | PC.NURSE ---
PATIENT CRIES OUT OH GOD OH GOD WHEN BARELY TOUCHED AND CONTINUED TO DO SO FOR OVER AN HOUR EVEN WHEN DILAUDID WAS GIVEN. BP HIGH AND LEVO WEANED OFF. REMAINS IN THE 140S SYSTOLIC AFTER 2 MG OF DILAUDID. UNABLE TO TAKE PO SAFELY. WILL NOT OPEN EYES TO COMMAND AND RESISTS FOLLOWING COMMANDS TO OPEN MOUTH. ORAL CARE GIVEN TO LIPS ONLY AT THIS TIME. TURNING Q 2 HOURS . PAINFUL FOR PATIENT . PATIENT IS CONFIRMED VRE, ECOLI AND CDIFF. PRECAUTIONS OF ISOLATION CONTINUED.
--- NOTE | 2019-08-07 18:04 | PC.NURSE ---
noted dti in a round shape on lower post thigh and inner thigh . all optfoams intact and in place. heels elevated. skin lubricated. intradry ag under breasts and between thighs. at this time patient is not praying to god for it to stop as she was prior to pain med administration. at one point around 1400 she asked for a sip of water or coke but once it was put to her lips she refused. oral care performed 4x this shift. no family has called for updates. levophed at 2mcg to keep map over 65.
--- NOTE | 2019-08-07 20:14 | PC.NURSE ---
Shift report taken from RAPHAEL Verde. Pt stable and dilaudid continues to help pain. Levophed was able to be shut off for a short time, but was restarted. Continue to manage BP and pain.
[2019-08-08] VITALS (50 sets, daily range): BP systolic 89–124; BP diastolic 45–68; PULSE 62–82; RESP 4–25; TEMP 35.6–36.4; O2SAT 91–100
[2019-08-08] MEDS: nystatin cream 30 gm 1 APPLIC TOPICAL ×2 (00:38→14:28)
[2019-08-08] MEDS: HYDROmorphone 1 mg/mL INJ 1 mL 2 MG IVP ×2 (03:03→07:56)
[2019-08-08] MEDS: hydrocortisone 100 mg/2 mL SDV IVP ×2 (04:10→14:21)
[2019-08-08] MEDS: pantoprazole 40 mg SDV IVP ×2 (04:10→14:20)
[2019-08-08] MEDS: metroNIDAZOLE IV 500 MG/100 ML PREMIX 100 MG IV ×3 (04:39→20:22)
[2019-08-08] MEDS: morphine 4 mg/mL SDV 1 mL 2 MG IVP ×2 (06:11→12:49)
[2019-08-08 06:12] LABS: INR 1.22 (0.8-1.2)
[2019-08-08] MEDS: levothyroxine 100 mcg Tablet PO (07:55)
[2019-08-08] MEDS: LORazepam 2 mg/mL INJ 1 mL 1 MG IVP (07:56)
--- NOTE | 2019-08-08 08:34 | PC.NURSE ---
PATIENT IS IN OBVIOUS PAIN AND DISTRESS BUT IS NO LONGER ABLE TO FOLLOW ANY DIRECTION OR SWALLOW SAFELY. HER SYTHROID IS NO LONGER SAFE TO GIVE ORALLY. HER URINE HAS IMPROVED GREATLY. CLEARER AND MORE PRODUCTION. SHE REMAINS SWOLLEN FROM HEAD TO TOES.
--- NOTE | 2019-08-08 09:04 | PC.NURSE ---
GRAM NEG RODS IN ONE OF 2 BLOOD CULTURE BOTTLES. PATIENT IS STILL MOANING SOME BUT LESS OFTEN. LEVO REMAINS AT 2.
--- NOTE | 2019-08-08 09:06 | PC.NURSE ---
DR BARRIGA MADE AWARE OF BLOOD CULTURES.
--- NOTE | 2019-08-08 12:06 | P.PN_ITS ---
Subjective Subjective: Interval history: Remains on Levophed at 2 mcg/min. Had 1100 mL urine output overnight, hemodynamically stable, afebrile, on 2.5 L nasal cannula, started on Primaxin last night secondary to ESBL E. coli in the urine culture. 1 out of 4 bottles of high repeat set of blood cultures is growing gram-negative rods so we will order another set of blood cultures. Medications: Reviewed: Yes Medication Review Details: Active Medications Generic Name Dose Route Start Last Admin Trade Name Freq PRN Reason Stop Dose Admin Acetaminophen 325 mg 08/05/19 04:11 Tylenol PO QID PRN Pain Hydrocortisone Sod ium Succinate 100 mg 08/05/19 16:11 08/08/19 04:10 Solu-Cortef Inj IVP 100 mg Q12H THEODORA Administration Hydromorphone HCl 2 mg 08/06/19 23:11 08/08/19 07:56 Dilaudid Inj IVP 2 mg Q4H PRN Administration SEVERE PAIN Norepinephrine Bit artrate 4 mg 254 mls @ 0 mls/h r 08/05/19 04:11 08/08/19 04:38 / Dextrose IV 2 mcg/min .Q0M THEODORA 7.6 mls/hr Administration Protocol Per Protocol Metronidazole 500 mg in 100 mls @ 100 mls/hr 08/05/19 21:15 08/08/19 06:05 Flagyl Iv IV Infused Q8H THEODORA Infusion Protocol Imipenem/Cilastati n Sodium 250 100 mls @ 200 mls /hr 08/08/19 16:00 mg/ Sodium Chlor jermaine IV Q6H THEODORA Protocol Potassium Chloride /Sodium Chloride 20 meq in 1,000 m ls @ 75 mls/hr 08/08/19 12:15 Sodium Chlor 0.4 5% +Kcl 20 Meq IV .[id number] THEODORA Levothyroxine Sodi um 100 mcg 08/05/19 09:00 08/08/19 07:55 Synthroid PO 100 mcg DAILY THEODORA Administration Lorazepam 1 mg 08/05/19 17:06 08/08/19 07:56 Ativan IVP 1 mg Q8H PRN Administration Anxiety and agita tion Morphine Sulfate 2 mg 08/06/19 10:46 08/08/19 06:11 Morphine IVP 2 mg Q4H PRN Administration SEVERE PAIN Nystatin 1 applic 08/05/19 09:00 08/08/19 00:38 Nystatin Cream TOPICAL 1 applic BID THEODORA Administration Pantoprazole Sodiu m 40 mg 08/05/19 16:00 08/08/19 04:10 Protonix IVP 40 mg Q12H THEODORA Administration Sodium Phosphate 118 ml 08/05/19 04:11 Fleet Enema [place] DAILY PRN Constipation oseltamivir [From Tamiflu] Allergy (Severe, Verified 05/14/19 08:54) ALGY-Hives furosemide [From Lasix] Allergy (Unknown, Verified 05/14/19 08:54) Unknown Penicillins Allergy (Unknown, Verified 05/14/19 08:54) Unknown Sulfa (Sulfonamide Antibiotics) Allergy (Unknown, Verified 05/14/19 08:54) Unknown Vitals/I&O/Wt Last Vital Signs Temp 97.5 F L 08/08/19 07:30 Pulse 63 08/08/19 09:26 Resp 10 L 08/08/19 09:26 BP 96/55 08/08/19 09:26 Pulse Ox 97 08/08/19 09:26 08/07/19 08/08/19 08/08/19 22:59 06:59 14:59 Intake Total 250 / 4690.867 423.247 / 5114.114 Output Total 950 / 1825 600 / 2425 300 / 300 Balance -700 / 2865.867 -176.753 / 2689.114 -300 / -300 Physical Exam Const: COMMON NORMALS: no acute distress GENERAL APPEARANCE: cooperative and comfortable NUTRITIONAL APPEARANCE: obese morbidly obese ORIENTATION/CONSCIOUSNESS: Yes patient obtunded OTHER: -resting quietly in bed HENMT: COMMON NORMALS: normocephalic and atraumatic HEAD & SCALP: norm ocephalic and atraumatic MOUTH: moist mucous membranes abnormal Details: cracked Eye: COMMON NORMALS: Equal, round and reactive pupils present, EOMs intact bilaterally and conjunctivae normal CONJUNCTIVA: Yes conjunctivae normal PUPIL: Yes Equal, round and reactive pupils present Neck/C-Spine: COMMON NORMALS: full ROM GENERAL: Yes normal visual inspection and Yes trachea midline Chest: CHEST: Yes Vascular access present (Left Port-A-Cath; accessed, no surrounding erythema, warmth, discharge) Resp: COMMON NORMALS: normal respiratory effort, No retractions, No use of accessory muscles and clear to auscultation bilaterally EFFORT & INSPECTION: Yes able to speak in complete sentences, Yes symmetric chest movement and No tachypneic AUSCULTATION: clear to auscultation bilaterally OTHER: -on 2.5 L NC Cardio: COMMON NORMALS: regular rate, regular rhythm, S1 normal heart sound present, S2 normal heart sound present and No murmurs present (Cardio) RATE: regular rate RHYTHM: regular rhythm HEART SOUNDS: S1 normal heart sound present and S2 normal heart sound present GI: COMMON NORMALS: Normal to inspection, nondistended, normoactive bowel sounds present and Soft to palpation INSPECTION: Yes central obesity PALPATION: Yes Soft to palpation : BLADDER/KIDNEY EXAM: Yes catheter in place Catheter type (Female): urethral Extremity: COMMON NORMALS: normal to inspection, full ROM and no clubbing, cyanosis or edema; negative for no pedal edema Neuro: COMMON NORMALS: moves all extremities, no focal motor deficits, no sensory deficits noted and gait normal Psych: COMMON NORMALS: mental status grossly normal, Normal thought process present, cooperative, normal affect and speech normal SPEECH: Yes normal speech THOUGHT PROCESS: Normal thought process present Skin: COMMON NORMALS: no jaundice, no petechiae and no mottling NARRATIVE SKIN EXAM: -noted on admission: healing lesion on dorsum of R foot, excoriation adjacent to R ankle; eschar on 3rd toe (L), superficial open wounds on L leg -excoriation on sacral area and inguinal area bilaterally HAIR: total alopecia Urinary Catheter Management^: Suero: Cath Placed During This Visit: yes Reason for Continuing Indwelling Catheter: Accurate Measurement of Urinary Output in Critically Ill Patients Urinary Catheter Date of Insertion: 08/05/19 Urinary Catheter Time of Insertion: 02:07 Data : 08/07/19 04:20 08/07/19 04:20 Micro: Microbiology 08/05/19 01:02 Blood Culture - Final Blood Escherichia coli esbl 08/05/19 01:02 Blood Culture - Final Blood Escherichia coli esbl 08/08/19 10:30 Blood Culture - Preliminary Blood SPECIMEN COLLECTED 08/06/19 11:23 Blood Culture - Preliminary Blood Gram Negative Rods 08/06/19 11:27 Blood Culture - Preliminary Blood NEGATIVE TO DATE 08/05/19 02:50 Urine Culture - Final Urine,Clean Catch Escherichia coli esbl A&P Assessment and plan (1) Septic shock: -secondary to UTI with underlying immunocompromise due to hx of endometrial cancer -associated altered mental status, noted lactic acidosis, hypotension, leukocytosis -on stress dose steroids -pressor support as needed to maintain MAP > 65; d/c IVF to prevent fluid overload; noted + fluid balance of 10 L -off Vanc, Aztreonam; switched to Primaxin based on ESBL E. coli -blood cx: 3/4 bottles positive for ESBL E. coli; repeat set (08/05)-1 out of 4 bottles positive for gram-negative rods, repeat set ordered -urine cx: ESBL E. coli; sensitivity noted -VSS; continue to monitor closely -supplemental oxygen as needed -C.difficile +, stool studies otherwise negative -decreasing leukocytosis; continue to trend WBC Status: Acute (2) Gram-negative bacteremia: -as noted above Status: Acute (3) C. difficile colitis: -as noted above -on Flagyl (in addition to Primaxin) given septic shock; patient too somnolent to take p.o. meds -contact isolation precautions Status: Acute (4) Acute cystitis: -UA indicative of infection -on IV abx as noted above -urine cx: ESBL E. coli; has a port in place so no need for PICC line placement -has chronic indwelling Suero catheter; changed on admission Status: Acute Qualifiers: Hematuria presence: without hematuria Qualified Code(s): N30.00 - Acute cystitis without hematuria (5) Septic encephalopathy: -as noted above -fall, aspiration precautions -CT head: unremarkable Status: Acute (6) Thrombocytopenia: -seems to be an intermittent issue; infection playing a role here -continue to monitor platelet count, monitor for bleeding -hold antiplatelets Status: Chronic (7) Acute kidney injury: -likely secondary to infection -continue to monitor urine output; has Suero catheter -continue to monitor renal function, renally dose meds, avoid nephotoxins Status: Acute (8) Anemia: -has alternated between microcytic and macrocytic anemia -baseline Hg is around 8-9 -has underlying endometrial cancer Status: Chronic Qualifiers: Anemia type: unspecified type Qualified Code(s): D64.9 - Anemia, unspecified (9) Decubitus ulcers: -noted to be present on admission, on sacral area and bilateral heels -frequent repositioning, wound care as needed, heel boots for offloading Status: Chronic Qualifiers: Pressure injury location: unspecified location Pressure injury stage: stage 1 Qualified Code(s): L89.91 - Pressure ulcer of unspecified site, stage 1 (10) Pulmonary embolism: -on AC with Coumadin, on hold due to anemia, thrombocytopenia, FOBT + -INR-1.22 Status: Chronic Qualifiers: Pulmonary embolism type: unspecified Chronicity: chronic Acute cor pulmonale presence: unspecified Qualified Code(s): I27.82 - Chronic pulmonary embolism (11) DVT (deep venous thrombosis): Status: Chronic Qualifiers: DVT location: lower extremity Affected thrombotic vein of extremity: unspecified vein of extremity Chronicity: chronic Laterality: unspecified laterality Qualified Code(s): I82.509 - Chronic embolism and thrombosis of unspecified deep veins of unspecified lower extremity (12) Endometrial adenocarcinoma: -History of endometrial adenocarcinoma with evidence of peritoneal and omental metastatic disease -Status post palliative hysterectomy, bilateral salpingo-oophorectomy and omentectomy in 01/2019 -follows up with Dr. Porras -on chemotherapy with Carboplatin/Paclitaxel Status: Chronic Additional A&P Information -Chronic back pain -Chronic lymphedema -Osteoporosis -Hypothyroidism -noted mention of possible large R pleural effusion; repeat CXR today shows elevation of R hemidiaphragm, atelectasis, and JOHNSON patchy airspace disease -NPO due to somnolence -GI ppx with PPI -DVT ppx with SCDs, no AC due to anemia, thrombocytopenia -Dispo: [facility] -Code status: DNR/DNI; based on clinical improvement or lack thereof may need to return to facility with hospice/end-of-life care. Updated brother Dmitri Reyes over the phone today. -ICU care due to septic shock, pressor support Attestations Medical Necessity Statement*: Patient requires hospitalization for continued IV antibiotic treatment secondary to ESBL E. coli UTI and bacteremia. Time Spent in Patient Care: 16 - 35 minutes (>than 50% of time spent in counselling and/or direct pt care on unit) . Coding Level of Care Code Acute Retail Link Analyst for Chg Fwd Diagnoses Septic shock A41.9; R65.21 Gram-negative bacteremia R78.81 C. difficile colitis A04.72 Acute cystitis N30.00 Hematuria presence: without hematuria Septic encephalopathy G93.41 Thrombocytopenia D69.6 Acute kidney injury N17.9 Anemia D64.9 Anemia type: unspecified type Decubitus ulcers L89.91 Pressure injury location: unspecified location Pressure injury stage: stage 1 Pulmonary embolism I27.82 Pulmonary embolism type: unspecified Chronicity: chronic Acute cor pulmonale presence: unspecified DVT (deep venous thrombosis) I82.509 DVT location: lower extremity Affected thrombotic vein of extremity: unspecified vein of extremity Chronicity: chronic Laterality: unspecified laterality Endometrial adenocarcinoma C54.1
[2019-08-08] MEDS: sodium chlor 0.45% +KCl 20 mEq 20 MEQ/1,000 ML BAG 75 MEQ IV (12:48)
--- NOTE | 2019-08-08 13:11 | PC.NURSE ---
PATIENTS BROTHER CALLED AROUND NOON AND WAS UPDATED ON PATIENTS PAIN AND BP ISSUES. HE EXPRESSED THAT SHE MAKES HER OWN DECISIONS AND THE LAST TIME HE WAS A DPOA IT WAS EXPENSIVE. HE WOULD LIKE TO SEE HER IF SHE IS A HOSPICE BOUND PATIENT TO SAY GOOD BYE. FLUIDS STARTED, PAIN TREATED, LEVO TURNED TO 1 MG.
[2019-08-09] VITALS (38 sets, daily range): BP systolic 88–132; BP diastolic 40–72; PULSE 73–114; RESP 6–26; TEMP 36.6–37; O2SAT 78–97
[2019-08-09] MEDS: sodium chlor 0.45% +KCl 20 mEq 20 MEQ/1,000 ML BAG 75 MEQ IV (01:14)
[2019-08-09] MEDS: HYDROmorphone 1 mg/mL INJ 1 mL 2 MG IVP ×3 (01:14→17:46)
[2019-08-09] MEDS: pantoprazole 40 mg SDV IVP ×2 (03:22→15:45)
[2019-08-09] MEDS: hydrocortisone 100 mg/2 mL SDV IVP ×2 (03:23→14:16)
[2019-08-09 04:00] LABS: Basophils % 0.4 %; Hematocrit 29.8 % (37.0-47.0); Lymphocytes # 1.1 10^3/uL (0.8-4.8); Lymphocytes % 13.8 %; Mean Corpuscular HGB Conc 30.2 g/dL (30.0-36.0); Mean Corpuscular Hemoglobin 33.1 pg (28.0-34.0); Mean Corpuscular Volume 109.6 fL (81-99); Mean Platelet Volume 10.9 fL (7.4-10.4); Monocytes # 0.5 10^3/uL (0.2-0.9); Monocytes % 5.8 %; Nucleated Red Blood Cells % 0 %; Red Blood Count 2.72 10^6/uL (4.1-5.3); Red Cell Distribution Width 19.7 % (12.1-15.1); White Blood Count 7.8 10^3/uL (4.0-10.0)
[2019-08-09 04:21] LABS: Blood Urea Nitrogen 69 mg/dL (8-23); Calcium 8.4 mg/dL (8.5-10.5); Carbon Dioxide 24 mmol/L (22-29); Chloride 116 mmol/L (98-107); Glucose 97 mg/dL (65-115); Osmolality Calculated 313 mOsm/kg (285-295); Sodium 152 mmol/L (136-145)
[2019-08-09] MEDS: metroNIDAZOLE IV 500 MG/100 ML PREMIX 100 MG IV ×2 (05:06→14:14)
[2019-08-09 06:47] LABS: Slide Review Slide Review Perform
[2019-08-09 06:48] LABS: Platelet Count 40 10^3/cmm (130-400)
--- NOTE | 2019-08-09 09:37 | PM.PN ---
Subjective Subjective: Interval history: Had 1000 mL urine output overnight, afebrile, now on 6 L nasal cannula, hemodynamically stable, noted hyponatremia, improved renal function, stable platelet count, resolved leukocytosis. Remains somnolent, barely moans and groans with repositioning. Called and spoke to brother Dmitri Reyes who understands patient's decompensation and would like to see her. Remains off pressor support Medications: Reviewed: Yes Medication Review Details: Active Medications Generic Name Dose Route Start Last Admin Trade Name Freq PRN Reason Stop Dose Admin Acetaminophen 325 mg 08/05/19 04:11 Tylenol PO QID PRN Pain Hydrocortisone Sod ium Succinate 100 mg 08/05/19 16:11 08/09/19 03:23 Solu-Cortef Inj IVP 100 mg Q12H THEODORA Administration Hydromorphone HCl 2 mg 08/06/19 23:11 08/09/19 01:14 Dilaudid Inj IVP 2 mg Q4H PRN Administration SEVERE PAIN Norepinephrine Bit artrate 4 mg 254 mls @ 0 mls/h r 08/05/19 04:11 08/08/19 16:58 / Dextrose IV 0 mcg/min .Q0M THEODORA 0 mls/hr Titration Protocol Per Protocol Metronidazole 500 mg in 100 mls @ 100 mls/hr 08/05/19 21:15 08/09/19 05:06 Flagyl Iv IV 100 mls/hr Q8H THEODORA Administration Protocol Imipenem/Cilastati n Sodium 250 100 mls @ 200 mls /hr 08/08/19 16:00 08/09/19 03:22 mg/ Sodium Chlor jermaine IV 200 mls/hr Q6H THEODORA Administration Protocol Potassium Chloride /Sodium Chloride 20 meq in 1,000 m ls @ 75 mls/hr 08/08/19 12:15 08/09/19 01:14 Sodium Chlor 0.4 5% +Kcl 20 Meq IV 75 mls/hr .[id number] THEODORA Administration Levothyroxine Sodi um 100 mcg 08/05/19 09:00 08/08/19 07:55 Synthroid PO 100 mcg DAILY THEODORA Administration Lorazepam 1 mg 08/05/19 17:06 08/08/19 07:56 Ativan IVP 1 mg Q8H PRN Administration Anxiety and agita tion Morphine Sulfate 2 mg 08/06/19 10:46 08/08/19 12:49 Morphine IVP 2 mg Q4H PRN Administration SEVERE PAIN Nystatin 1 applic 08/05/19 09:00 08/08/19 14:28 Nystatin Cream TOPICAL 1 applic BID THEODORA Administration Pantoprazole Sodiu m 40 mg 08/05/19 16:00 08/09/19 03:22 Protonix IVP 40 mg Q12H THEODORA Administration Sodium Phosphate 118 ml 08/05/19 04:11 Fleet Enema [place] DAILY PRN Constipation oseltamivir [From Tamiflu] Allergy (Severe, Verified 05/14/19 08:54) ALGY-Hives furosemide [From Lasix] Allergy (Unknown, Verified 05/14/19 08:54) Unknown Penicillins Allergy (Unknown, Verified 05/14/19 08:54) Unknown Sulfa (Sulfonamide Antibiotics) Allergy (Unknown, Verified 05/14/19 08:54) Unknown Vitals/I&O/Wt Last Vital Signs Temp 98.4 F 08/09/19 06:00 Pulse 76 08/09/19 07:48 Resp 14 08/09/19 06:00 BP 106/53 08/09/19 06:00 Pulse Ox 96 08/09/19 07:48 08/08/19 08/09/19 08/09/19 22:59 06:59 14:59 Intake Total 308.710 / 477.743 932.5 / 1410.243 Output Total 445 / 745 1000 / 1745 Balance -136.290 / -267.257 -67.5 / -334.757 Physical Exam Const: COMMON NORMALS: no acute distress GENERAL APPEARANCE: cooperative and comfortable NUTRITIONAL APPEARANCE: obese morbidly obese ORIENTATION/CONSCIOUSNESS: Yes patient obtunded OTHER: -resting quietly in bed HENMT: COMMON NORMALS: normocephalic and atraumatic HEAD & SCALP: normocephalic and atraumatic MOUTH: moist mucous membranes abnormal Details: cracked Eye: COMMON NORMALS: Equal, round and reactive pupils present, EOMs intact bilaterally and conjunctivae normal CONJUNCTIVA: Yes conjunctivae normal PUPIL: Yes Equal, round and reactive pupils present Neck/C-Spine: COMMON NORMALS: full ROM GENERAL: Yes normal visual inspection and Yes trachea midline Chest: CHEST: Yes Vascular access present (Left Port-A-Cath; accessed, no surrounding erythema, warmth, discharge) Resp: COMMON NORMALS: normal respiratory effort, No retractions, No use of accessory muscles and clear to auscultation bilaterally EFFORT & INSPECTION: Yes able to speak in complete sentences, Yes symmetric chest movement and No tachypneic AUSCULTATION: clear to auscultation bilaterally OTHER: -on 6 L NC Cardio: COMMON NORMALS: regular rate, regular rhythm, S1 normal heart sound present, S2 normal heart sound present and No murmurs present (Cardio) RATE: regular rate RHYTHM: regular rhythm HEART SOUNDS: S1 normal heart sound present and S2 normal heart sound present GI: COMMON NORMALS: Normal to inspection, nondistended, normoactive bowel sounds present and Soft to palpation INSPECTION: Yes central obesity PALPATION: Yes Soft to palpation : BLADDER/KIDNEY EXAM: Yes catheter in place Catheter type (Female): urethral Extremity: COMMON NORMALS: normal to inspection, full ROM and no clubbing, cyanosis or edema; negative for no pedal edema Neuro: COMMON NORMALS: moves all extremities, no focal motor deficits, no sensory deficits noted and gait normal Psych: COMMON NORMALS: mental status grossly normal, Normal thought process present, cooperative, normal affect and speech normal SPEECH: Yes normal speech THOUGHT PROCESS: Normal thought process present Skin: COMMON NORMALS: no jaundice, no petechiae and no mottling NARRATIVE SKIN EXAM: -noted on admission: healing lesion on dorsum of R foot, excoriation adjacent to R ankle; eschar on 3rd toe (L), superficial open wounds on L leg -excoriation on sacral area and inguinal area bilaterally HAIR: total alopecia Urinary Catheter Management^: Suero: Cath Placed During This Visit: yes Reason for Continuing Indwelling Catheter: Accurate Measurement of Urinary Output in Critically Ill Patients Urinary Catheter Date of Insertion: 08/05/19 Urinary Catheter Time of Insertion: 02:07 Data : 08/09/19 03:46 08/09/19 03:46 Micro: Microbiology 08/06/19 11:27 Blood Culture - Preliminary Blood Gram Negative Rods 08/08/19 12:16 Blood Culture - Preliminary Blood SPECIMEN COLLECTED 08/05/19 01:02 Blood Culture - Final Blood Escherichia coli esbl 08/05/19 01:02 Blood Culture - Final Blood Escherichia coli esbl 08/08/19 10:30 Blood Culture - Preliminary Blood SPECIMEN COLLECTED 08/06/19 11:23 Blood Culture - Preliminary Blood Gram Negative Rods A&P Assessment and plan (1) Septic shock: -secondary to UTI with underlying immunocompromise due to hx of endometrial cancer -associated altered mental status, noted lactic acidosis, hypotension, leukocytosis -on stress dose steroids -pressor support as needed to maintain MAP > 65; d/c IVF to prevent fluid overload; noted + fluid balance of 12 L -off Vanc, Aztreonam; switched to Primaxin based on ESBL E. coli -blood cx: 3/4 bottles positive for ESBL E. coli; repeat set (08/05)-2 out of 4 bottles positive for gram-negative rods, repeat set ordered -urine cx: ESBL E. coli; sensitivity noted -VSS; continue to monitor closely -supplemental oxygen as needed -C.difficile +, stool studies otherwise negative -resolved leukocytosis; continue to trend WBC Status: Acute (2) Gram-negative bacteremia: -as noted above Status: Acute (3) C. difficile colitis: -as noted above -on Flagyl (in addition to Primaxin) given septic shock; patient too somnolent to take p.o. meds -contact isolation precautions Status: Acute (4) Acute cystitis: -UA indicative of infection -on IV abx as noted above -urine cx: ESBL E. coli; has a port in place so no need for PICC line placement -has chronic indwelling Suero catheter; changed on admission Status: Acute Qualifiers: Hematuria presence: without hematuria Qualified Code(s): N30.00 - Acute cystitis without hematuria (5) Septic encephalopathy: -as noted above -fall, aspiration precautions -CT head: unremarkable Status: Acute (6) Thrombocytopenia: -seems to be an intermittent issue; infection playing a role here -continue to monitor platelet count, monitor for bleeding -hold antiplatelets Status: Chronic (7) Acute kidney injury: -likely secondary to infection -continue to monitor urine output; has Suero catheter -continue to monitor renal function, renally dose meds, avoid nephotoxins Status: Acute (8) Anemia: -has alternated between microcytic and macrocytic anemia -baseline Hg is around 8-9; stable Hg so far -has underlying endometrial cancer Status: Chronic Qualifiers: Anemia type: unspecified type Qualified Code(s): D64.9 - Anemia, unspecified (9) Decubitus ulcers: -noted to be present on admission, on sacral area and bilateral heels -frequent repositioning, wound care as needed, heel boots for offloading Status: Chronic Qualifiers: Pressure injury location: unspecified location Pressure injury stage: stage 1 Qualified Code(s): L89.91 - Pressure ulcer of unspecified site, stage 1 (10) Pulmonary embolism: -on AC with Coumadin, on hold due to anemia, thrombocytopenia, FOBT + -INR-1.22 Status: Chronic Qualifiers: Acute cor pulmonale presence: unspecified Chronicity: chronic Pulmonary embolism type: unspecified Qualified Code(s): I27.82 - Chronic pulmonary embolism (11) DVT (deep venous thrombosis): Status: Chronic Qualifiers: Affected thrombotic vein of extremity: unspecified vein of extremity Chronicity: chronic DVT location: lower extremity Laterality: unspecified laterality Qualified Code(s): I82.509 - Chronic embolism and thrombosis of unspecified deep veins of unspecified lower extremity (12) Endometrial adenocarcinoma: -History of endometrial adenocarcinoma with evidence of peritoneal and omental metastatic disease -Status post palliative hysterectomy, bilateral salpingo-oophorectomy and omentectomy in 01/2019 -follows up with Dr. Porras -on chemotherapy with Carboplatin/Paclitaxel Status: Chronic Additional A&P Information -Chronic back pain -Chronic lymphedema -Osteoporosis -Hypothyroidism -noted mention of possible large R pleural effusion; repeat CXR shows elevation of R hemidiaphragm, atelectasis, and JOHNSON patchy airspace disease -NPO due to somnolence -GI ppx with PPI -DVT ppx with SCDs, no AC due to anemia, thrombocytopenia -Dispo: [facility] -Code status: DNR/DNI; based on clinical improvement or lack thereof may need to return to facility with hospice/end-of-life care. Updated brother Dmitri Reyes, requests to see patient given decompensation and need to make decision on end of life care. Attestations Medical Necessity Statement*: Patient requires hospitalization for continued IV antibiotics secondary to gram negative bacteremia and C.difficile, pending repeat negative blood cultures, improved mental status. Time Spent in Patient Care: 16 - 35 minutes (>than 50% of time spent in counselling and/or direct pt care on unit). Coding Level of Care Code Acute Boring Machine Operator Horizontal for [facility] Fwd Exam Comprehensive Diagnoses Septic shock A41.9; R65.21 Gram-negative bacteremia R78.81 C. difficile colitis A04.72 Acute cystitis N30.00 Hematuria presence: without hematuria Septic encephalopathy G93.41 Thrombocytopenia D69.6 Acute kidney injury N17.9 Anemia D64.9 Anemia type: unspecified type Decubitus ulcers L89.91 Pressure injury location: unspecified location Pressure injury stage: stage 1 Pulmonary embolism I27.82 Acute cor pulmonale presence: unspecified Chronicity: chronic Pulmonary embolism type: unspecified DVT (deep venous thrombosis) I82.509 Affected thrombotic vein of extremity: unspecified vein of extremity Chronicity: chronic DVT location: lower extremity Laterality: unspecified laterality Endometrial adenocarcinoma C54.1
--- NOTE | 2019-08-09 09:40 | DCPLANNER ---
Preventive Medicine Physician did prepare the IM for pt yesterday but nursing was with her. Choose not to phone family as pt appears to be declining and she wasn't being d/c'd yet.
[2019-08-09] MEDS: nystatin cream 30 gm 1 APPLIC TOPICAL (10:28)
[2019-08-09] MEDS: LORazepam 2 mg/mL INJ 1 mL 1 MG IVP (10:33)
--- NOTE | 2019-08-09 13:59 | PC.NURSE ---
patient less responsive today, rattle present . ivf decreased to kvo. pain and anxiety treated. moaning decreased. patient turned and oral care performed q2h. brother called unit and was updated on her breathing issues and that the doctor will probably call him to come for a visit.
[2019-08-09] MEDS: morphine 4 mg/mL SDV 1 mL 2 MG IVP (14:12)
[2019-08-09] MEDS: scopolamine 1.5 Patch 1 PATCH TRANSDERMA (14:14)
--- NOTE | 2019-08-09 15:48 | PC.NURSE ---
patient unable to maintain sats, oxygen to 6l nc. oral care performed and suctioned pharynx. patients brother notified she has turned the corner and may pass. awaiting visit.
--- NOTE | 2019-08-09 16:56 | PC.NURSE ---
family at bedside to say goodbyes. updated them. comfort care started.
--- NOTE | 2019-08-09 21:27 | PC.NURSE ---
PT IS NOT A CANDIDATE FOR [employer].
--- NOTE | 2019-08-09 22:14 | PC.NURSE ---
PT ON 08/08 AT 2034. FAMILY WAS NOTIFIED. POWER OF GYMNASIUM TEACHER (PTS BROTHER) DID NOT HAVE ARRANGEMENTS MADE AT THIS TIME AND CALLED THE [facility] TO SEE IF THEY HAD MADE ARRANGEMENTS. NO ARRANGEMENTS HAD BEEN MADE. BROTHER STATES HE NEEDS TO TALK TO THE [facility] LE[facility] INSPECTOR IN THE MORNING TO FIGURE OUT ARRANGEMENTS AND ASKED IF WE CAN KEEP THE BODY UNTIL THE MORNING. EVALUATION ASSISTANT WAS MADE AWARE AND STATED THAT PT BODY CAN STAY IN THE [place] UNTIL THE MORNING. THIS NURSE INSTRUCTED BROTHER TO CALL FIRST THING IN THE MORNING WITH ARRANGEMENTS.
--- NOTE | 2019-08-09 22:30 | PC.NURSE ---
ASA AT [facility] CALLED AND SAID HE DISCUSSED WITH THE SON THAT THEY COULD SEND PT TO [facility]. THIS NURSE CALLED SON TO VERIFY THAT THIS WAS OKAY, SON GAVE VERBAL CONSENT, AND STATES THAT HE WILL TALK TO [facility] IN THE MORNING ABOUT THE DETAILS. THIS NURSE CALLED [facility] AND THEY WILL ARRIVE TO DATA ANALYSIS ASSISTANT AROUND [id number].
--- NOTE | 2019-08-10 07:07 | PM.EVENT ---
Event Note Event Note: 2034 0n 08/09/19 note to be done by Dr Lemos
--- NOTE | 2019-08-11 12:23 | P.DES_ITS ---
Discharge Providers DDS Date of Admission: 08/05/19 02:52 Date Summary Completed: 08/11/19 Attending Provider at Admission: Malina Allen MD Time of : 20:35 Attending Provider at Discharge: Olimpia Lemos MD Primary Care Provider: Maria G Mccarthy MD DS Diagnoses Hospital Diagnoses (1) Septic shock: (2) Gram-negative bacteremia: (3) C. difficile colitis: (4) Acute cystitis: Qualifiers: Hematuria presence: without hematuria Qualified Code(s): N30.00 - Acute cystitis without hematuria (5) Septic encephalopathy: (6) Thrombocytopenia: (7) Acute kidney injury: (8) Anemia: Qualifiers: Anemia type: unspecified type Qualified Code(s): D64.9 - Anemia, unspecified (9) Decubitus ulcers: Qualifiers: Pressure injury location: unspecified location Pressure injury stage: stage 1 Qualified Code(s): L89.91 - Pressure ulcer of unspecified site, stage 1 (10) Pulmonary embolism: Qualifiers: Pulmonary embolism type: unspecified Chronicity: chronic Acute cor pulmonale presence: unspecified Qualified Code(s): I27.82 - Chronic pulmonary embolism (11) DVT (deep venous thrombosis): Problem details: 2007 Qualifiers: DVT location: lower extremity Affected thrombotic vein of extremity: unspecified vein of extremity Chronicity: chronic Laterality: unspecified laterality Qualified Code(s): I82.509 - Chronic embolism and thrombosis of unspecified deep veins of unspecified lower extremity (12) 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 IV antibiotics were changed to Primaxin and she was already on Flagyl but she remained ence phalopathic and did not awaken enough during the course of her hospitalization to take anything by mouth. She was hypotensive and required pressor support for quite some time. Following discussion with family, due to lack of improvement and in fact noted decompenstion clinically, decision was made to transition her to comfort measures. She was moved to the floor and kept comfortable until she . Additional Data: Advance directives?: Yes Discharge Plan Discharge Patient Disposition: Condition: Discharge Date/Time: 08/09/19 20:35 DS Attestations Time Spent in /Discharge Care*: less than 30 min Quality - AMI: AMI present?: No Clinical Trial Participant: No Quality - Stroke: CVA present?: No Quality - VTE: VTE present?: No Coding Level of Care Code Acute [employer] for g Fwd Diagnoses Septic shock A41.9; R65.21 Gram-negative bacteremia R78.81 C. difficile colitis A04.72 Acute cystitis N30.00 Hematuria presence: without hematuria Septic encephalopathy G93.41 Thrombocytopenia D69.6 Acute kidney injury N17.9 Anemia D64.9 Anemia type: unspecified type Decubitus ulcers L89.91 Pressure injury location: unspecified location Pressure injury stage: stage 1 Pulmonary embolism I27.82 Pulmonary embolism type: unspecified Chronicity: chronic Acute cor pulmonale presence: unspecified DVT (deep venous thrombosis) I82.509 DVT location: lower extremity Affected thrombotic vein of extremity: unspecified vein of extremity Chronicity: chronic Laterality: unspecified laterality Endometrial adenocarcinoma C54.1
== END 2019-08-09 20:35 | disposition expired | DRG 871 ==
LOC: ER 00:53 → ICU 02:59 → MEDSURG 08-09 18:20
PROVIDERS: Admitting Provider Internal Medicine; Emergency Provider Emergency Medicine; PCP Family Medicine; Visit Provider Family Medicine
DX: A41.9 Sepsis, unspecified organism (principal); R65.21 Severe sepsis with septic shock; G93.41 Metabolic encephalopathy; N30.00 Acute cystitis without hematuria; N17.9 Acute kidney failure, unspecified; K92.1 Melena; A04.72 Enterocolitis due to Clostridium difficile, not specified as recurrent; Z16.12 Extended spectrum beta lactamase (ESBL) resistance; Z51.5 Encounter for palliative care; Z66 Do not resuscitate; D64.9 Anemia, unspecified; R19.7 Diarrhea, unspecified; D69.6 Thrombocytopenia, unspecified; L89.301 Pressure ulcer of unspecified buttock, stage 1; L89.601 Pressure ulcer of unspecified heel, stage 1; C54.1 Malignant neoplasm of endometrium; Z86.718 Personal history of other venous thrombosis and embolism; Z86.711 Personal history of pulmonary embolism; B96.20 Unspecified Escherichia coli [E. coli] as the cause of diseases classified elsewhere; M81.0 Age-related osteoporosis without current pathological fracture
CPT/HCPCS: 12345; 36415; 36416; 51702; 70450; 71045; 80048; 80053; 81001; 82803; 82962; 83605; 84443; 85007; 85025; 85610; 86850; 86900; 87040; 87077; 87086; 87186; 87205; 87493; 87506; 96375; 99284; C9113; J0743; J1170; J1720; J2060; J2270; J3370; J3490; J7030; J7050; S0030